=== PATIENT | male | born 1940 | race Caucasian/White ===

== ENCOUNTER → 2017-01-05 | Outpatient (CLI) | payer MEDICARE, OTHER | LOC: GMAB 10:10 | PROVIDERS: ATTEND Family Medicine | DX: E03.9 Hypothyroidism, unspecified (principal); G20 Parkinson's disease; Z12.5 Encounter for screening for malignant neoplasm of prostate | CPT/HCPCS: 84439; 84443; 84481; G0103 ==

== ENCOUNTER → 2017-01-11 | Outpatient (CLI) | payer MEDICARE, OTHER ==
--- NOTE | 2017-01-13 19:26 | CT ---
EXAM DESCRIPTION: CT abdomen and pelvis without contrast CLINICAL HISTORY: MICROSCOPIC HEMATURIA COMPARISON: None Available. TECHNIQUE: Noncontrast spiral CT with coronal and sagittal reformatted images. This exam was performed according to our departmental dose-optimization program, which includes automated exposure control, adjustment of the mA and/or kV according to patient size and/or use of iterative reconstruction technique. FINDINGS: No renal stone disease. No mass lesion identified kidneys, ureters, or bladder. Prostate calcification. Multiple phleboliths in the pelvis. Old granulomatous disease with a couple of calcified granulomas in the lung bases and numerous calcified granulomas in the spleen. Heart size normal And couple calcified granulomas in the liver. No other abnormality. Pancreas and adrenal glands are normal. No biliary or pancreatic duct dilation. Small sliding-type hiatal hernia. No diagnostic abnormality of the stomach or small intestine. Numerous diverticula of the large intestine. Redundant large intestine with moderate volume of stool. No mass lesion or diagnostic inflammatory process identified Atherosclerotic aorta. 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 This measures about 1.7 x 1.9 x 1.1 cm. Osteopenia. No acute bony abnormality. Multilevel degenerative change in the spine IMPRESSION: Etiology of hematuria not identified. No renal stone disease or neoplastic lesion identified Redundant large intestine with numerous diverticula. 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 Recommend vascular consultation. If intervention is planned consider CT angiogram for better characterization Electronically signed by: Stephon Barksdale MD 01/13/2017 7:25 PM CDT Workstation: [employer]
== END ==
LOC: CT 10:49
PROVIDERS: ATTEND Family Medicine
DX: R31.21 Asymptomatic microscopic hematuria (principal)

== ENCOUNTER → 2018-01-08 | Outpatient (CLI) | payer MEDICARE, OTHER | LOC: GMAE 11:58 | PROVIDERS: ATTEND Family Medicine | DX: E03.9 Hypothyroidism, unspecified (principal) ==

== ENCOUNTER 2018-01-17 07:32 | Emergency (ER) | payer MEDICARE, OTHER ==
[2018-01-17 08:09] VITALS: TEMP 96.6
--- NOTE | 2018-01-17 08:54 | CT ---
EXAM DESCRIPTION: Cervical Spine CLINICAL HISTORY: fall without loc COMPARISON: None Available. TECHNIQUE: Multiple axial images of the cervical spine without contrast. Multiplanar reformatted images. This exam was performed according to our departmental dose-optimization program, which includes automated exposure control, adjustment of the mA and/or kV according to patient size and/or use of iterative reconstruction technique. FINDINGS: Vertebral body stature and alignment are maintained. There is no acute fracture or destructive osseous lesion. Advanced multilevel spondylitic changes throughout the cervical spine with moderate disc narrowing from C3-C4 through C7-T1. Hypertrophic uncovertebral spurring, advanced facet hypertrophy and disc osteophyte complexes at these levels with mild multilevel spinal canal narrowing and moderate to high-grade bilateral neural foraminal narrowing, most advanced at C5-C6. Calcific plaque in the visualized arteries. The visualized lung apices are clear. IMPRESSION: 1. No CT evidence of an acute osseous abnormality in the cervical spine. 2. Advanced multilevel spondylitic and facet degenerative changes. Electronically signed by: Martin Golden MD 01/17/2018 8:53 AM CDT
--- NOTE | 2018-01-17 08:57 | CT ---
EXAM DESCRIPTION: Head CLINICAL HISTORY: fall without loc COMPARISON: None available TECHNIQUE: Multiple axial images of the head without contrast. Multiplanar reformatted images. This exam was performed according to our departmental dose-optimization program, which includes automated exposure control, adjustment of the mA and/or kV according to patient size and/or use of iterative reconstruction technique. FINDINGS: There is no CT evidence of intracranial hemorrhage, mass effect, or large territory infarction. Mild generalized volume loss. Mild patchy supratentorial white matter hypodensities. There are no abnormal extra-axial fluid collections. Calcific plaque in the visualized arteries. There is no acute calvarial defect. The visualized paranasal sinuses and the mastoids are clear. IMPRESSION: 1. No CT evidence of an acute intracranial abnormality. If there is concern for an acute or subacute infarct, consider follow-up MRI. 2. Senescent changes. Electronically signed by: Martin Golden MD 01/17/2018 8:56 AM CDT
[2018-01-17] MEDS ORDERED: NEOMYCIN-BACITRACIN-POLYMYXIN 0.9 GM UD TOP ONE (09:13)
[2018-01-17] MEDS ORDERED: SULFA/TRIMETH 800/160 (DS) TAB 1 EA TAB PO ONE (09:13)
[2018-01-17] MEDS ORDERED: TETANUS,DIPHTHERIA,PERTUSSIS 1 EA SYG IM ONE (09:14)
--- NOTE | 2018-01-17 09:17 | ED.PDOC ---
History of Present Illness - General Chief Complaint: Trauma Stated Complaint: fall Time Seen by Provider: 01/17/18 07:33 Source: patient, family Exam Limitations: no limitations - History of Present Illness Initial Comments: the patient is a 77-year-old male with a history of Parkinson's that tripped and fell on his bathroom and sustained a 1/2 inch laceration above his right eyebrow. No loss of consciousness. He does have some mild pain to the left lateral lower neck but not over the midline of the neck. There is no deformity. No bruising. No other injuries. No acute neurological changes. He is pleasant alert and cooperative. He does have some chronic dementia. Family is here with him. Timing/Duration: 1/2 hour Severity: mild Improving Factors: nothing Worsening Factors: nothing Associated Symptoms: denies symptoms Allergies/Adverse Reactions: Allergies Penicillins Allergy (Verified 04/14/15 10:53) Home Medications: Ambulatory Orders Amantadine HCl [Symmetrel] 100 mg PO BID 04/14/15 Atorvastatin Calcium [Lipitor] 10 mg PO BEDTIME 04/14/15 Carbidopa-Levodopa [Carbidopa/Levodopa 25-100 mg] 1 tab PO BID 04/14/15 Tamsulosin [Flomax] 0.4 mg PO BEDTIME 04/14/15 Tyrosine [l-Tyrosine] 500 mg PO DAILY 04/14/15 rOPINIRole HCL [Requip] 1 mg PO BID #0 tab 04/16/15 Review of Systems - Review of Systems Constitutional: States: no symptoms reported EENTM: States: no symptoms reported Respiratory: States: no symptoms reported Cardiology: States: no symptoms reported Gastrointestinal/Abdominal: States: no symptoms reported Genitourinary: States: no symptoms reported Musculoskeletal: States: neck pain Skin: States: see HPI Neurological: States: see HPI Endocrine: States: no symptoms reported All other Systems: No Change from Baseline Past Medical History (General) - Patient Medical History Hx Seizures: No Hx Stroke: No Hx Dementia: No Hx Asthma: No Hx of COPD: No Hx Cardiac Disorders: No Hx Congestive Heart Failure: No Hx Pacemaker: No Hx Hypertension: No Hx Thyroid Disease: No Hx Diabetes: No Hx Gastroesophageal Reflux: No Hx Renal Disease: No Hx Cancer: No Hx of HIV: No Hx Hepatitis C: No Hx MRSA: No Surgical History: cholecystectomy - Vaccination History Hx Tetanus, Diphtheria Vaccination: Yes Hx Influenza Vaccination: No Hx Pneumococcal Vaccination: No Immunizations Up to Date: No - Social History Hx Tobacco Use: No Hx Chewing Tobacco Use: No Hx Alcohol Use: No Hx Substance Use: No Hx Substance Use Treatment: No Hx Depression: No Feels Threatened In Home Enviroment: No Feels Threatened In a Relationship: No Hx Physical Abuse: No Hx Emotional Abuse: No Hx Suspected Abuse: No - Activities of Daily Living Hospice Agency (if applicable):: None - Female History Patient is a Female of Child Bearing Age (10 -59 yrs old): No Patient : No Family Medical History - Family History Father Family History: Unknown Physical Exam - Physical Exam General Appearance: Alert, Comfortable, No apparent distress Eye Exam: bilateral normal Ears, Nose, Throat: hearing grossly normal, normal ENT inspection, normal pharynx Neck: full range of motion, supple, other - tenderness to palpation approximately 2 inches lateral to the C5-6 area on the left.this appears to be a trapezius strain. 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 His family reports that he is acting normally for him. Skin Exam: normal color Comments: chronic changes related to Parkinson's otherwise. Vital Signs - 8 hr 01/17/18 01/17/18 01/17/18 07:45 08:03 08:45 Temperature 96.6 F L Pulse Rate [ 62 62 69 Apical] Respiratory 18 18 Rate Blood Pressure 127/85 145/84 [xleft] O2 Sat by Pulse 97 96 Oximetry Progress - Progress Progress: 01/17/18 09:19 the patient is a 77-year-old male presenting to the emergency room after a fall at home. He sustained a 1/2 inch laceration above the right eyebrow. This has been cleaned. Risk and benefits of repair have been explained and patient and family do agree with the repair. Wound is clean with Hibiclens and 2 simple sutures of 4-0 Ethilon were used for reapproximation without difficulty. Estimated blood loss less than 5 cc. Sutures need to come out in 7-10 days. Antibiotic ointment can be used topically several times daily to prevent drying of the edges of the wound. Monitor for any evidence of infection. The patient was given 1 dose of Bactrim here and a tetanus shot here. CT scans of the head and cervical spine show no evidence of any acute pathology. He does have chronic changes in both areas. Low-dose Motrin can be used for soreness for the next few days. ER warnings were given for any significant worsening. Keep routine follow-up with primary care doctor otherwise. - EKG/XRAY/CT CT Ordered: No CT Interpretation Call Back: No Departure - Departure Clinical Impression: Fall at home Qualifiers: Encounter type: initial encounter Qualified Code(s): W19.XXXA - Unspecified fall, initial encounter; Y92.009 - Unspecified place in unspecified non- institutional (private) residence as the place of occurrence of the external cause; Y92.009 - Unspecified place in unspecified non-institutional (private) residence as the place of occurrence of the external cause Acute cervical myofascial strain Qualifiers: Encounter type: initial encounter Qualified Code(s): S16.1XXA - Strain of muscle, fascia and tendon at neck level, initial encounter Laceration of forehead Qualifiers: Encounter type: initial encounter Qualified Code(s): S01.81XA - Laceration without foreign body of other part of head, initial encounter Disposition: Discharge to Home or Self Care Condition: Fair Departure Forms: ED Discharge - Pt. Copy, Patient Portal Self Enrollment Instructions: DI for Trauma, Laceration Repair With Stitches (DC) Diet: regular diet Activity: increase activity as tolerated Referrals: TENISHA MCCABE MD [Primary Care Provider] - 1-2 Weeks Home Medications: Ambulatory Orders Amantadine HCl [Symmetrel] 100 mg PO BID 04/14/15 Atorvastatin Calcium [Lipitor] 10 mg PO BEDTIME 04/14/15 Carbidopa-Levodopa [Carbidopa/Levodopa 25-100 mg] 1 tab PO BID 04/14/15 Tamsulosin [Flomax] 0.4 mg PO BEDTIME 04/14/15 Tyrosine [l-Tyrosine] 500 mg PO DAILY 04/14/15 rOPINIRole HCL [Requip] 1 mg PO BID #0 tab 04/16/15 Additional Instructions: the patient is a 77-year-old male presenting to the emergency room after a fall at home. He sustained a 1/2 inch laceration above the right eyebrow. This has been cleaned. 2 simple sutures of 4-0 Ethilon were used for reapproximation without difficulty. Estimated blood loss less than 5 cc. Sutures need to come out in 7-10 days. Antibiotic ointment can be used topically several times daily to prevent drying of the edges of the wound. Monitor for any evidence of infection. The patient was given 1 dose of Bactrim here and a tetanus shot here. CT scans of the head and cervical spine show no evidence of any acute pathology. He does have chronic changes in both areas. Low-dose Motrin can be used for soreness for the next few days. ER warnings were given for any significant worsening. Keep routine follow-up with primary care doctor otherwise.
[2018-01-17 09:53] VITALS: BP 157/96; O2SAT 98
== END 2018-01-17 09:58 | disposition home or self-care (01) ==
LOC: ER 07:32
DX: S01.111A Laceration without foreign body of right eyelid and periocular area, initial encounter (principal); M54.2 Cervicalgia; Z23 Encounter for immunization; G31.83 Neurocognitive disorder with Lewy bodies; F02.80 Dementia in other diseases classified elsewhere, unspecified severity, without behavioral disturbance, psychotic disturbance, mood disturbance, and anxiety; Z79.899 Other long term (current) drug therapy; W01.0XXA Fall on same level from slipping, tripping and stumbling without subsequent striking against object, initial encounter; Y92.9 Unspecified place or not applicable

== ENCOUNTER → 2018-07-10 | Outpatient (CLI) | payer MEDICARE, OTHER ==
--- NOTE | 2018-07-10 16:37 | CT ---
EXAM DESCRIPTION: Lumbar Spine CLINICAL HISTORY: 78 years, Male, INITIAL ENCOUNTER FOR CLOSED FX COMPARISON: None TECHNIQUE: Lumbar CT with thin-section axial imaging with reconstructed MPR images reviewed as well. This exam was performed according to our departmental dose-optimization program, which includes automated exposure control, adjustment of the mA and/or kV according to patient size and/or use of iterative reconstruction technique. FINDINGS: Noncontrast examination of the lumbar spine demonstrates severe compression deformity of the L3 vertebral body with impaction of both endplates that are essentially touching in the center of the disc with expansion of the vertebral body and retropulsed bone significantly into the spinal canal approximately 70% with severe AP diameter central spinal canal stenosis with the canal and no more than approximately 4 mm in AP diameter. Acute fracture lines are evident involving the superior and inferior endplates with expansion of the bone consistent with a burst fracture. Pedicles and lamina and posterior elements including the superior and inferior facets are intact as a single unit. Severe spinal canal stenosis is present at this level. Changes are slightly worse to the left of midline than to the right of midline. Vertebral bodies are otherwise intact without loss of height with marked anterior hypertrophic degenerative spurs and severe degenerative disc narrowing with [id number] appearance at the L4-5 level with approximately 2 mm of retrolisthesis and minimal vacuum phenomena in this disc space as well as degenerative L5-S1 disc space. Vacuum phenomena within the L2-3 disc space with extension of gas into the L3 vertebral body from the fractured superior endplate is noted. Disc height and disc contour and alignment of the spine is normal from the L2 to level cephalad. Soft tissue images demonstrate hypertrophic changes and adequate spinal canal with annular bulge at the L4-5 level and degenerative L5-S1 level. Mild annular bulge at L3-4 and severe stenosis from annular bulge and posterior element hypertrophy and retropulsed bone at the L2-3 and upper L2 level. Abdominal aorta is abnormal with borderline aneurysm of the aorta at the thoracolumbar junction at the aortic hiatus and a normal caliber aorta below this point with a focal eccentric aneurysm of the infrarenal abdominal aorta at the L4 level anterolaterally on the right with a maximal diameter of 2.9 cm. With consider this finding more significant with the focal nature of the aneurysm arising from the abdominal aorta. The right anterolateral wall of the aneurysm bulges outside the normal lumen approximately 11 mm. I am uncertain whether this represents a true aneurysm or a calcified pseudoaneurysm of the aorta. IMPRESSION: 1. Burst fracture of the L3 vertebral body superior and inferior endplates with near complete collapse of the central vertebra and significant retropulsed bone and severe AP diameter canal stenosis at the upper L3 level no more than 4 mm in diameter. Left worse than right compromise of the bony spinal canal is evident. 2. Advanced disc degenerative disease L4-5 and L5-S1 with thecal sac in the lower range of normal without additional severe stenosis. 3. No fracture of the posterior elements at the L3 vertebral body noted. 4. 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 This eccentric bulge of the aorta is estimated at 11 mm in diameter. Vascular surgery consultation recommended with consideration for CT angiography of the aorta if the patient's renal function will allow. Electronically signed by: Stephon Villalobos MD 07/10/2018 4:35 PM [facility]
== END ==
LOC: CT 14:00
PROVIDERS: ATTEND Family Medicine
DX: S32.031A Stable burst fracture of third lumbar vertebra, initial encounter for closed fracture (principal); M51.37 Other intervertebral disc degeneration, lumbosacral region; M51.36 Other intervertebral disc degeneration, lumbar region; I71.9 Aortic aneurysm of unspecified site, without rupture; M48.061 Spinal stenosis, lumbar region without neurogenic claudication

== ENCOUNTER 2018-08-30 18:48 | Inpatient (IN) | payer MEDICARE, OTHER ==
--- NOTE | 2018-08-30 19:31 | ED.PDOC ---
History of Present Illness - General Chief Complaint: Fever Stated Complaint: fever Time Seen by Provider: 08/30/18 19:17 Source: family - daughter Exam Limitations: clinical condition - parkinsons - History of Present Illness Initial Comments: Tarun Lopez 78 y/o male was brought by EMS with fever T-102 taken by daughter at home.Had lumbar spine surgery 7 weeks ago at [facility].Also was discharge to rehab facility post surgery and had uncomplicated post op course.Has history of Parkinsons Disease and dementia. No dysuria,no cough, no SOB,usual back pain,no chills. 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 Associated Symptoms: denies symptoms, other - see hpi Review of Systems - Review of Systems Constitutional: States: see HPI, fever EENTM: States: no symptoms reported Respiratory: States: no symptoms reported Cardiology: States: no symptoms reported Gastrointestinal/Abdominal: States: no symptoms reported Genitourinary: States: no symptoms reported Musculoskeletal: States: see HPI, back pain - chronic Neurological: States: see HPI All other Systems: Reviewed and Negative, No Change from Baseline Past Medical History (General) - Patient Medical History Hx Seizures: No Hx Stroke: No Hx Dementia: No Hx Asthma: No Hx of COPD: No Hx Cardiac Disorders: No Hx Congestive Heart Failure: No Hx Pacemaker: No Hx Hypertension: No Hx Thyroid Disease: No Hx Diabetes: No Hx Gastroesophageal Reflux: No Hx Renal Disease: No Hx Cancer: No Hx of HIV: No Hx Hepatitis C: No Hx MRSA: No Hx Other PMH: Yes - Parkinsons Disease and Dementia Surgical History: cholecystectomy, other - lumbar spine - Vaccination History Hx Tetanus, Diphtheria Vaccination: Yes Hx Influenza Vaccination: Yes Hx Pneumococcal Vaccination: Yes - Social History Hx Tobacco Use: No Hx Chewing Tobacco Use: No Hx Alcohol Use: No Hx Substance Use: No Hx Substance Use Treatment: No Hx Depression: No Hx Physical Abuse: No Hx Emotional Abuse: No Hx Suspected Abuse: No - Activities of Daily Living Grooming Ability: Standby Assistance Eating (Feeding) Ability: Standby Assistance Toileting Ability: Standby Assistance - Female History Patient : No Family Medical History - Family History Father Family History: Unknown Physical Exam - Physical Exam General Appearance: Alert, Comfortable, No apparent distress Eye Exam: bilateral normal ENT Exam: normal ENT inspection, hearing grossly normal, pharynx normal Neck: non-tender, full range of motion, supple, normal inspection, trachea midline Respiratory: chest non-tender, lungs clear, normal breath sounds Cardiovascular/Chest: normal peripheral pulses, regular rate, rhythm, no murmur Gastrointestinal/Abdominal: non tender, soft, no organomegaly Extremity: no pedal edema, no calf tenderness Neurologic: alert Skin Exam: normal color, warm/dry, other - surgical site no erythema noted Progress - Progress Progress: 08/30/18 22:04 08/30/18 21:18 Urine Culture Stat 08/30/18 21:56 Urine Culture Urgent Laboratory Results - last 24 hr 08/30/18 08/30/18 08/30/18 19:54 19:54 19:54 WBC 8.4 RBC 4.08 L Hgb 11.9 L Hct 36.8 L MCV 90.1 MCH 29.1 MCHC 32.3 L RDW 16.2 H Plt Count 144 MPV 8.3 Absolute Neuts (auto) 7.70 H Absolute Lymphs (auto) 0.30 L Absolute Monos (auto) 0.40 Absolute Eos (auto) 0.00 Absolute Basos (auto) 0.00 Neutrophils % 91.1 H Lymphocytes % 3.5 L Monocytes % 4.5 Eosinophils % 0.4 L Basophils % 0.5 ESR 40 H Sodium 140 Potassium 3.7 Chloride 105 Carbon Dioxide 26 Anion Gap 12.7 BUN 24 H Creatinine 0.96 BUN/Creatinine Ratio 25.0 H Random Glucose 101 Serum Osmolality 283.6 Lactic Acid Calcium 8.9 Total Bilirubin 0.7 AST 17 ALT < 8 L Alkaline Phosphatase 127 H C-Reactive Protein 3.3 H Serum Total Protein 6.5 Albumin 3.3 Globulin 3.2 Albumin/Globulin Ratio 1.0 L Urine Color Urine Appearance Urine pH Ur Specific Delano Urine Protein Urine Glucose (UA) Urine Ketones Urine Blood Urine Nitrite Urine Bilirubin Urine Urobilinogen Ur Leukocyte Esterase Urine RBC Urine WBC Ur Epithelial Cells Urine Bacteria 08/30/18 08/30/18 19:54 21:18 WBC RBC Hgb Hct MCV MCH MCHC RDW Plt Count MPV Absolute Neuts (auto) Absolute Lymphs (auto) Absolute Monos (auto) Absolute Eos (auto) Absolute Basos (auto) Neutrophils % Lymphocytes % Monocytes % Eosinophils % Basophils % ESR Sodium Potassium Chloride Carbon Dioxide Anion Gap BUN Creatinine BUN/Creatinine Ratio Random Glucose Serum Osmolality Lactic Acid 1.8 Calcium Total Bilirubin AST ALT Alkaline Phosphatase C-Reactive Protein Serum Total Protein Albumin Globulin Albumin/Globulin Ratio Urine Color Yellow Urine Appearance Sl cloudy Urine pH 5.5 Ur Specific Delano >= 1.030 Urine Protein 100 H Urine Glucose (UA) Negative Urine Ketones Trace Urine Blood Large H Urine Nitrite Positive H Urine Bilirubin Negative Urine Urobilinogen 0.2 Ur Leukocyte Esterase Small H Urine RBC 10-20 H Urine WBC 30-40 H Ur Epithelial Cells 1-3 Urine Bacteria 4+ H - Results/Orders Results/Orders: 08/30/18 21:18 Urine Culture Stat 08/30/18 21:56 Urine Culture Urgent Laboratory Results - last 24 hr 08/30/18 08/30/18 08/30/18 19:54 19:54 19:54 WBC 8.4 RBC 4.08 L Hgb 11.9 L Hct 36.8 L MCV 90.1 MCH 29.1 MCHC 32.3 L RDW 16.2 H Plt Count 144 MPV 8.3 Absolute Neuts (auto) 7.70 H Absolute Lymphs (auto) 0.30 L Absolute Monos (auto) 0.40 Absolute Eos (auto) 0.00 Absolute Basos (auto) 0.00 Neutrophils % 91.1 H Lymphocytes % 3.5 L Monocytes % 4.5 Eosinophils % 0.4 L Basophils % 0.5 ESR 40 H Sodium 140 Potassium 3.7 Chloride 105 Carbon Dioxide 26 Anion Gap 12.7 BUN 24 H Creatinine 0.96 BUN/Creatinine Ratio 25.0 H Random Glucose 101 Serum Osmolality 283.6 Lactic Acid Calcium 8.9 Total Bilirubin 0.7 AST 17 ALT < 8 L Alkaline Phosphatase 127 H C-Reactive Protein 3.3 H Serum Total Protein 6.5 Albumin 3.3 Globulin 3.2 Albumin/Globulin Ratio 1.0 L Urine Color Urine Appearance Urine pH Ur Specific Delano Urine Protein Urine Glucose (UA) Urine Ketones Urine Blood Urine Nitrite Urine Bilirubin Urine Urobilinogen Ur Leukocyte Esterase Urine RBC Urine WBC Ur Epithelial Cells Urine Bacteria 08/30/18 08/30/18 19:54 21:18 WBC RBC Hgb Hct MCV MCH MCHC RDW Plt Count MPV Absolute Neuts (auto) Absolute Lymphs (auto) Absolute Monos (auto) Absolute Eos (auto) Absolute Basos (auto) Neutrophils % Lymphocytes % Monocytes % Eosinophils % Basophils % ESR Sodium Potassium Chloride Carbon Dioxide Anion Gap BUN Creatinine BUN/Creatinine Ratio Random Glucose Serum Osmolality Lactic Acid 1.8 Calcium Total Bilirubin AST ALT Alkaline Phosphatase C-Reactive Protein Serum Total Protein Albumin Globulin Albumin/Globulin Ratio Urine Color Yellow Urine Appearance Sl cloudy Urine pH 5.5 Ur Specific Delano >= 1.030 Urine Protein 100 H Urine Glucose (UA) Negative Urine Ketones Trace Urine Blood Large H Urine Nitrite Positive H Urine Bilirubin Negative Urine Urobilinogen 0.2 Ur Leukocyte Esterase Small H Urine RBC 10-20 H Urine WBC 30-40 H Ur Epithelial Cells 1-3 Urine Bacteria 4+ H - EKG/XRAY/CT XRAY: chest - right lwer lobe opacity-[id number] Departure - Departure Clinical Impression: Fever Qualifiers: Fever type: due to other condition Qualified Code(s): R50.81 - Fever presenting with conditions classified elsewhere Urinary tract infection Qualifiers: Urinary tract infection type: site unspecified Hematuria presence: with hematuria Qualified Code(s): N39.0 - Urinary tract infection, site not specified Time of Disposition: 22:09 Disposition: Admit Patient Condition: Fair Departure Forms: ED Discharge - Pt. Copy, Patient Portal Self Enrollment Referrals: TENISHA MCCABE MD [Primary Care Provider] - 1-2 Weeks Home Medications: Ambulatory Orders Carbidopa-Levodopa [Carbidopa/Levodopa 25-100 mg] 1 tab PO TID 04/14/15 Tamsulosin [Flomax] 0.4 mg PO BEDTIME 04/14/15 rOPINIRole HCL [Requip] 1 mg PO BID #0 tab 04/16/15 Fludrocortisone Acetate 0.1 mg PO BID 08/30/18 Levothyroxine Sodium 50 mcg PO DAILY 08/30/18 Meloxicam 7.5 mg PO BID 08/30/18 Midodrine HCl 10 mg PO QID 08/30/18 QUEtiapine FUMARATE [SEROquel] 1 - 2 mg PO BEDTIME 08/30/18 Tramadol HCl 50 mg PO Q6H PRN 08/30/18 Decision To Admit - Decistion To Admit Decision to Admit Reason: Admit from ER Decision to Admit Date: 08/30/18 - D/W Bennett Del Rosario-ANP/Hospitalist Decision to Admit Time: 22:06
[2018-08-30] MEDS ORDERED: SODIUM CHLORIDE 0.9% 500ML 500 ML IVS ONE (19:34)
--- NOTE | 2018-08-30 20:33 | RAD ---
EXAM DESCRIPTION: Chest,1 View CLINICAL HISTORY: 78 years Male, fever COMPARISON: Chest x-ray April 15, 2015. FINDINGS: There is mild streaky opacity in the right lower lung zone. No pneumothorax. No significant pleural effusion. Cardiac silhouette appears borderline enlarged. Aortic atherosclerosis and tortuosity is present. Osseous structures demonstrate degenerative changes. IMPRESSION: Mild streaky opacity in the right lung base favoring atelectasis over infiltrate. Electronically signed by: Juan Cervantes MD 08/30/2018 8:29 PM CDT
--- NOTE | 2018-08-30 20:47 | CT ---
PROCEDURE: Lumbar Spine CLINICAL HISTORY: 78 years ,Male ,fever;s/p lumbar spine surgery 7 wks ago COMPARISON: 07/10/2018 TECHNIQUE: Contiguous axial images obtained through the lumbar spine without IV contrast. Coronal and sagittal reformatted images obtained. This exam was performed according to our department optimization program which includes automated exposure control, adjustment of the mA and/or kv according to patient size and/or use of iterative reconstruction technique. FINDINGS: Straightening of the normal lordosis. There is sideplate and screw fixation of the lumbar spine which extends from L2 to L4. There has been partial corpectomy at L3 with intervertebral graft. Multilevel degenerative change. There is mild superior compression at T12 which is unchanged. Narrowing of the disc interspaces at L4-5 and L5-S1 which appears similar to the previous study. Vascular calcification in aorta and its branches. Cardiac enlargement. Generalized disc bulging and facet arthropathy at L2-L3 with mild central canal and bilateral neural foraminal stenosis. Metallic susceptibility artifact at L3-L4 limits evaluation. There appears to be moderate narrowing of the central canal and mild neural foraminal stenosis. L4-5: Moderate disc bulging with moderate neural foraminal and central canal stenosis. L5-S1: Disc bulging with mild central canal stenosis and moderate neural foraminal stenosis. The plate and screw fixation on the left is approximately 2 cm away from the lateral cortices of the vertebral bodies. The possibility of a fluid collection in this location cannot be excluded secondary to streak artifact. IMPRESSION: Plate and screw fixation with corpectomy at L3. The sideplate does not abut the lateral cortices of the vertebral bodies. The possibility of an underlying fluid collection cannot be excluded secondary to metallic streak artifact Multilevel degenerative change Cardiac enlargement. Electronically signed by: Michell Kuhn MD 08/30/2018 8:44 PM CDT
[2018-08-30] MEDS ORDERED: MEROPENEM 500 MG in SODIUM CHL 0.9% 50ML MIN-BAG+ 50 ML IVPB ONE (22:09)
[2018-08-30] MEDS ORDERED: SODIUM CHL 0.9% 50ML MIN-BAG+ 50 ML IVPB ONE (22:18)
[2018-08-30] MEDS ORDERED: MEROPENEM 500 MG VIAL IVPB ONE (22:18)
--- NOTE | 2018-08-30 22:34 | HP ---
CHIEF COMPLAINT: Fever, delirium. HISTORY OF PRESENT ILLNESS: The patient is a 78-year-old man with a significant history of a recent lumbar spinal fixation about 7 weeks ago in [place], who was brought here with family after they found him to have a temperature of 102 degrees Fahrenheit, in addition to a slight increase in delirium from his baseline Alzheimer's. The daughter stated he gradually was acting slightly abnormal, being a little more agitated and delirious, as well as speaking a little more softly than usual, over several days. They did measure his temperature and it was found to be a 102 degrees Fahrenheit. She knew with his comorbidities, an Emergency Room evaluation would be appropriate. In the Emergency Room, workup found him to have a urinary tract infection with some right lower lobe atelectasis. He was admitted overnight and started on meropenem and ready for evaluation in the morning. REVIEW OF SYSTEMS: Slightly limited given the patient's advanced dementia and Parkinson's. He does endorse no abdominal pain or dysuria. He does have some lower back pain status post recent surgery and skin irritation from his back brace. PAST MEDICAL HISTORY: 1. Hyperlipidemia. 2. Hypothyroidism. 3. Advanced Alzheimer's disease. 4. Advanced Parkinson's disease. PAST SURGICAL HISTORY: 1. Lumbar spinal fixation involving cage insertion, arthrodesis L2 to L4, L3 corpectomy. 2. Colonoscopy. MEDICATIONS: 1. Fludrocortisone 0.1 mg tablet b.i.d. 2. Rapaflo 4 mg capsule p.o. daily. 3. Sinemet 25/100 mg tablet p.o. t.i.d. 4. Synthroid 50 mcg tablet p.o. daily. 5. Amantadine 100 mg tablet p.o. b.i.d. 6. Midodrine 10 mg tablet p.o. t.i.d. 7. Tramadol 50 mg tablet p.o. q.4h. p.r.n. moderate pain. 8. Mobic 7.5 mg tablet 1 to 2 tabs p.o. daily. 9. Ropinirole 0.5 mg tablet daily. ALLERGIES: PENICILLINS. FAMILY HISTORY: Father at age 74, unknown source. Mother at 91 years old. He has three healthy sisters currently living. SOCIAL HISTORY: He denies ever using tobacco, rarely consumes wine, no illicit drugs. He is . has advanced dementia. Three children. PHYSICAL EXAMINATION: VITAL SIGNS: Temperature 97.9 degrees Fahrenheit. Pulse 81. Blood pressure 159/81. Respirations 18. O2 saturation 97% on room air. GENERAL: No acute distress, sitting up in bed finishing breakfast. Attempting to talk normally. CHEST: Lungs clear to auscultation, no chest wall tenderness, no wheezes or rales. CARDIOVASCULAR: Normal rate and rhythm, no murmurs, no peripheral edema. ABDOMEN: Soft, nontender to palpation, no masses appreciated. NEUROLOGIC: Alert, oriented to person which is baseline, moving extremities normally at his baseline. Per the daughter, he is normal this morning to about his baseline, which is able to shuffle to the restroom and to the bed, very short distances on his own. LABORATORY: WBCs 4.9, hemoglobin 10.4, hematocrit 32, platelet count 124. Sodium 140, potassium 3.7, chloride 107, carbon dioxide 26, BUN 19, creatinine 0.94. AST 17, ALT 8, alkaline phosphatase 127. CRP elevated at 3.3, ESR elevated at 40. Urinalysis: Large blood, positive nitrites, small leukocyte esterase, 30 to 40 WBCs, 10 to 20 RBCs, 4+ urine bacteria. MICROBIOLOGY: Urine culture pending. Flu A and B negative. IMAGING: Chest x-ray 08/31/18 shows no acute cardiopulmonary process, no consolidation. Chest x-ray on admission from 08/30/18 shows possible right lower lobe atelectasis, no infiltrate. Lumbar spine CT 08/30/18: "Plate and screw fixation with corpectomy at L3, possibility of an underlying fluid collection cannot be excluded secondary to metallic streak artifact. Multilevel degenerative changes noted." ASSESSMENT: 1. Complicated urinary tract infection in a male with history of Gonzalez use. 2. Febrile due to #1, resolved. 3. Chronic low back pain status post lumbar fixation. 4. Chronic hypotension. 5. Hyperlipidemia. 6. Hypothyroidism. 7. Advanced Alzheimer's. 8. Advanced Parkinson's disease. PLAN: Mr. Lopez is going to be admitted with a diagnosis of acute complicated urinary tract infection in a male. He is allergic to penicillin, thus, we have started him on meropenem intravenously. Urine culture is pending. After that time, we can narrow our antibiotics to more appropriate outpatient treatment. We are continuing his home medications, I have discussed with the daughter who endorses his midodrine is actually t.i.d., he receives his last dose around 3 to 4 PM to avoid any sleep complications. We are giving him an incentive spirometer given her admission x-ray that showed atelectasis. He does have some skin irritation on his back from his back brace status post lumbar fixation, nursing is applying wound care and protective measures to avoid any ulceration. We will avoid DVT Prophylaxis with Lovenox given his recent Spinal surgery. Started on SCDs for the time being. We will have physical therapy work with him to establish a baseline and provide him with a walker and resources while he is in the hospital. I discussed this picture and the plan with the daughter, who endorses agreement and understanding. [facility][id number] [facility]
[2018-08-30] MEDS ORDERED: SODIUM CHLORIDE 0.9% (FLUSH) 10 ML SYG IV PRN (23:42)
[2018-08-30] MEDS ORDERED: IV SET AND CAP CHANGE INJ INJ SCH (23:45)
[2018-08-30] MEDS ORDERED: ACETAMINOPHEN 325 MG TAB PO PRN (23:46)
[2018-08-31] MEDS ORDERED: QUEtiapine FUMARATE 100 MG TAB PO SCH
[2018-08-31] MEDS: FLUDROCORTISONE ACETATE PO SCH ×4 (00:06→20:33)
[2018-08-31] MEDS ORDERED: QUEtiapine FUMARATE 100 MG TAB ONE (00:07)
[2018-08-31] MEDS: MIDODRINE HCL 10 MG PO SCH ×6 (00:07→20:34)
[2018-08-31] MEDS: QUEtiapine FUMARATE 100 MG TAB PO SCH ×2 (00:14→20:36)
[2018-08-31] MEDS ORDERED: SODIUM CHL 0.9% 50ML MIN-BAG+ 50 ML IVPB ONE ×3 (05:10→19:43)
[2018-08-31] MEDS ORDERED: MEROPENEM 500 MG VIAL IVPB ONE ×3 (05:10→19:43)
[2018-08-31] MEDS: MEROPENEM 500 MG in SODIUM CHL 0.9% 50ML MIN-BAG+ 50 ML IVPB SCH ×3 (05:36→21:56)
[2018-08-31] MEDS ORDERED: LEVOTHYROXINE SODIUM 0.025 MG TAB ONE (07:24)
--- NOTE | 2018-08-31 07:25 | RAD ---
EXAM: Single view chest. INDICATION: Pneumonia. COMPARISON: Chest x-ray: 08/30/2018. FINDINGS: Cardiac silhouette: At the upper limit of normal in size Xiomara: Unremarkable. Lobar consolidation: None. Pleural effusion: None. Pneumothorax: None. Other: Calcified left hilar lymph nodes are again noted Bones: Unremarkable. Other: None. IMPRESSION: 1. No acute cardiopulmonary process. Electronically signed by: Jan Cross MD 08/31/2018 7:23 AM CDT Workstation: [id number]
[2018-08-31] MEDS: LEVOTHYROXINE SODIUM 0.025 MG TAB PO SCH (09:50)
[2018-08-31] MEDS: MELOXICAM 7.5 MG TAB PO SCH ×2 (09:50→20:35)
[2018-08-31] MEDS: TAMSULOSIN 0.4 MG CAP PO SCH (09:50)
[2018-08-31] MEDS: CARBIDOPA/LEVODOPA 25/100 1 TAB PO SCH ×3 (09:52→20:36)
[2018-09-01] MEDS ORDERED: SODIUM CHL 0.9% 50ML MIN-BAG+ 50 ML IVPB ONE ×3 (04:00→19:55)
[2018-09-01] MEDS ORDERED: MEROPENEM 500 MG VIAL IVPB ONE ×3 (04:01→19:55)
[2018-09-01] MEDS: MEROPENEM 500 MG in SODIUM CHL 0.9% 50ML MIN-BAG+ 50 ML IVPB SCH ×3 (05:44→21:44)
[2018-09-01] MEDS: LEVOTHYROXINE SODIUM 0.025 MG TAB PO SCH (06:06)
[2018-09-01] MEDS ORDERED: POTASSIUM CHLORIDE INJ 40 MEQ 40 MEQ in SODIUM CHLORIDE 0.9% 250ML 250 ML IVPB ONE (06:49)
[2018-09-01] MEDS ORDERED: SODIUM CHLORIDE 0.9% 250ML 250 ML ONE (07:35)
[2018-09-01] MEDS ORDERED: POTASSIUM CHLORIDE 40mEq 20ML VIAL ONE (07:35)
[2018-09-01] MEDS: MELOXICAM 7.5 MG TAB PO SCH ×2 (08:10→20:44)
[2018-09-01] MEDS: CARBIDOPA/LEVODOPA 25/100 1 TAB PO SCH ×3 (08:11→20:46)
[2018-09-01] MEDS: MIDODRINE HCL 10 MG PO SCH ×5 (08:11→21:17)
[2018-09-01] MEDS: TAMSULOSIN 0.4 MG CAP PO SCH (08:11)
[2018-09-01] MEDS: SODIUM CHLORIDE 0.9% (FLUSH) 10 ML SYG IV SCH ×2 (08:19→20:45)
[2018-09-01] MEDS: FLUDROCORTISONE ACETATE PO SCH ×2 (08:20→20:43)
--- NOTE | 2018-09-01 11:14 | PN ---
DATE: 09/01/18 SUBJECTIVE: The patient slept well overnight, waking only for a couple of drinks of water. A sitter is in the room with him currently, stated he did very well. No other changes per nursing, other than an update that Physical Therapy saw him yesterday. REVIEW OF SYSTEMS: Somewhat limited due to the patient's advanced dementia, but it does endorse no abdominal pain. OBJECTIVE: VITALS: Temperature 97.5, pulse 67, blood pressure 169/90, respirations 18, O2 saturation 95% on room air. PHYSICAL EXAM: GENERAL: No acute distress, lying in bed comfortably. CHEST: Lung are clear to auscultation, no wheezes or coughing. CARDIO: Normal rate and rhythm, no murmur, no peripheral edema. ABDOMEN: Soft, non-tender, no suprapubic tenderness. NEUROLOGIC: Per sitter and daughter, at baseline for dementia, no focal deficits. LABORATORY: WBC 3.6, hemoglobin/hematocrit is 10.4/32.3, platelets 122. Sodium 140, potassium 3.3, chloride 106, carbon dioxide 27, BUN/creatinine 19/0.76. Normal serum osmolality, calcium slightly low at 8.3. MICROBIOLOGY: Urine culture pending, Influenza A and B negative. ASSESSMENT: 1. Complicated urinary tract infection in a male with history of Gonzalez use. 2. Febrile due to #1, resolved. 3. Hypokalemia, replacing. 4. Chronic low back pain status post lumbar fixation. 5. Chronic hypotension. 6. Hyperlipidemia. 7. Hypothyroidism. 8. Advanced Alzheimer's. 9. Advanced Parkinson's disease. PLAN: Will continue to treat Mr. Lopez's urinary tract infection with Meropenem IV. We are awaiting urine cultures, after which we can narrow down antibiotics. Continue his home medications consisting of Sinemet, Synthroid, Fludrocortisone, Midodrine t.i.d., Seroquel, Ropinirole and Flomax. Physical Therapy worked with the patient yesterday and I received a verbal report that he did well, but was just slightly weaker than what his apparent baseline is. We will replace his potassium throughout the day. #[id number] [facility]
[2018-09-01] MEDS ORDERED: SODIUM CHLORIDE 0.9% 1000ML 1,000 ML ONE (11:46)
[2018-09-01] MEDS: QUEtiapine FUMARATE 100 MG TAB PO SCH (20:45)
[2018-09-02] MEDS ORDERED: MEROPENEM 500 MG VIAL IVPB ONE ×2 (01:51→13:46)
[2018-09-02] MEDS ORDERED: SODIUM CHL 0.9% 50ML MIN-BAG+ 50 ML IVPB ONE ×2 (01:51→13:45)
[2018-09-02] MEDS: MEROPENEM 500 MG in SODIUM CHL 0.9% 50ML MIN-BAG+ 50 ML IVPB SCH ×2 (05:49→13:54)
[2018-09-02] MEDS: LEVOTHYROXINE SODIUM 0.025 MG TAB PO SCH (06:01)
[2018-09-02] MEDS: TAMSULOSIN 0.4 MG CAP PO SCH (09:33)
[2018-09-02] MEDS: MELOXICAM 7.5 MG TAB PO SCH (09:33)
[2018-09-02] MEDS: SODIUM CHLORIDE 0.9% (FLUSH) 10 ML SYG IV SCH (09:33)
[2018-09-02] MEDS: CARBIDOPA/LEVODOPA 25/100 1 TAB PO SCH ×2 (09:33→14:51)
[2018-09-02] MEDS: FLUDROCORTISONE ACETATE PO SCH (09:34)
[2018-09-02] MEDS: MIDODRINE HCL 10 MG PO SCH ×3 (10:57→16:16)
--- NOTE | 2018-09-02 12:27 | PN ---
DATE: 09/02/18 SUBJECTIVE: The patient feeling much better, conversing a lot more normal and quickly than in the previous days. The sitter is with him, she endorses no changes and that he ate breakfast well. REVIEW OF SYSTEMS: GENERAL: Patient feeling better overall, no acute distress. CHEST: Denies any shortness of breath, no cough. CARDIO: Denies any chest pain, no new peripheral edema, no palpitations. ABDOMEN: No abdominal pain, urinating and having normal bowel movements. NEUROLOGIC: Patient is at baseline regarding advanced dementia, able to give a little bit more details today though. OBJECTIVE: VITAL SIGNS: Temperature 97.6, pulse 71, blood pressure 174/92 down to 150/93, respirations 18, O2 saturation 96% on room air. PHYSICAL EXAM: GENERAL: Patient lying in bed, just finished breakfast, no acute distress and conversing better than he has in previous days. CHEST: Lungs are clear to auscultation, no wheezes or rales. CARDIO: Regular rate and rhythm, no murmurs, no peripheral edema. ABDOMEN: Soft, non-tender, no suprapubic tenderness. NEUROLOGIC: Alert to person and place, near baseline per the sitter, no focal findings. EXTREMITIES: Normal pulses throughout, no swelling. LABORATORY: WBC 4.0, hemoglobin 10.8, hematocrit 32.7, platelet count improving at 127. Sodium 137, potassium 3.7, chloride 102, carbon dioxide 29, BUN/creatinine 17/0.64, alkaline phosphatase normalizing to 106. MICROBIOLOGY: Urine culture pending. ASSESSMENT: 1. Complicated urinary tract infection in a male with history of Gonzalez use, improving. 2. Febrile due to #1, resolved. 3. Hypokalemia, resolved. 4. Chronic low back pain status post lumbar fixation. 5. Chronic hypotension. 6. Hyperlipidemia. 7. Hypothyroidism. 8. Advanced Alzheimer's. 9. Advanced Parkinson's disease. PLAN: We will continue treating Mr. Lopez's urinary tract infection with IV Meropenem while we await for urine culture and susceptibilities. Given his blood pressure is becoming more normal and even slightly high, we will hold Midodrine as we see necessary. Continuing all other home medications at this time. Physical Therapy yesterday saw the patient and said he was weak but doing well overall, they agreed and I have given him a prescription for a wheelchair for longer distances. #[id number] [facility]
[2018-09-02] MEDS ORDERED: SODIUM CHLORIDE 0.9% 500ML 500 ML ONE (14:30)
[2018-09-02 14:56] VITALS: TEMP 98.6
--- NOTE | 2018-09-02 16:55 | DS ---
ADMISSION DIAGNOSIS: 1. Complicated urinary tract infection in a male with history of Gonzalez use. 2. Febrile due to #1, resolved. 3. Chronic low back pain status post lumbar fixation. 4. Chronic hypotension. 5. Hyperlipidemia. 6. Hypothyroidism. 7. Advanced Alzheimer's. 8. Advanced Parkinson's disease. REASON FOR ADMISSION: The patient is a 78-year-old man with a significant history of a recent lumbar spinal fixation about 7 weeks ago in [place], who was brought here with family after they found him to have a temperature of 102 degrees Fahrenheit, in addition to a slight increase in delirium from his baseline Alzheimer's. The daughter stated he gradually was acting slightly abnormal, being a little more agitated and delirious, as well as speaking a little more softly than usual, over several days. They did measure his temperature and it was found to be a 102 degrees Fahrenheit. She knew with his comorbidities, an Emergency Room evaluation would be appropriate. In the Emergency Room, workup found him to have a urinary tract infection with some right lower lobe atelectasis. He was admitted overnight and started on meropenem and ready for evaluation in the morning. HOSPITAL COURSE: Mr. Lopez was admitted and treated for acute complicated urinary tract infection, responding well to IV antibiotics consisting of Meropenem. He did well over the last 3 days, his vitals stabilized as well as any type of sepsis picture. We received cultures and sensitivities today, resistant to Bactrim and sensitive to fluoroquinolones and cephalosporins. VITALS: Temperature 98.8, pulse 64, blood pressure 156/101, respirations 19, O2 saturation 97% on room air. LABORATORY: White blood cell count within normal limits throughout admission, hemoglobin mildly low but stable through admission. Platelet count in the mid 120s. ESR was 40. Sodium normal throughout admission, potassium low as 3.3, normalized to 3.7. BUN/creatinine was normal throughout the admission at an average of 17/0.64. Lactic acid was normal at 1.8. Urinalysis on admission showed positive nitrite, small leukocyte esterase, 4+ count of urine bacteria, and large amount of blood. MICROBIOLOGY: Urine culture showed E. coli susceptible to fluoroquinolones and cephalosporins. IMAGING: Chest x-ray throughout admission was unremarkable. The patient had lumbar spine CT prior to admission that showed a chronic plate and screw fixation with corpectomy at L3, multilevel degenerative changes noted. DISCHARGE DIAGNOSIS: 1. Complicated urinary tract infection in a male with history of Gonzalez use, Resolving. 2. Febrile due to #1, resolved. 3. Hypokalemia, resolved. 4. Chronic low back pain status post lumbar fixation. 5. Chronic hypotension. 6. Hyperlipidemia. 7. Hypothyroidism. 8. Advanced Alzheimer's. 9. Advanced Parkinson's disease. PLAN: Given Mr. Lopez's urine culture and susceptibilities, will send him home with a 4 day course of Levaquin. With his Penicillin allergy we are hesitant to send him home on cephalosporins at this time. We prefer to use Bactrim, but it is shown to be resistant to this. Levaquin seems to be our best option at this time. The patient has sitters with him at home almost constantly, also has home health that comes out and sees him and also administers physical therapy for him. Discussed with the daughter and they agreed with the plan. Will followup with his primary care physician within the next 1 to 2 weeks to monitor progression and complete resolution of urinary tract infection. #[id number] [facility]
[2018-09-02 19:12] VITALS: BP 172/84; O2SAT 96
== END 2018-09-02 18:55 | disposition home health service (06) | DRG 690 ==
LOC: ER 18:48 → MS 22:33 → OBSVTOIN 22:33
PROVIDERS: ADMIT Family Medicine; ATTEND Family Medicine
DX: N39.0 Urinary tract infection, site not specified (principal); G89.29 Other chronic pain; E87.6 Hypokalemia; M54.5 Low back pain; I95.9 Hypotension, unspecified; E78.5 Hyperlipidemia, unspecified; E03.9 Hypothyroidism, unspecified; G30.9 Alzheimer's disease, unspecified; G20 Parkinson's disease; F02.80 Dementia in other diseases classified elsewhere, unspecified severity, without behavioral disturbance, psychotic disturbance, mood disturbance, and anxiety; B96.20 Unspecified Escherichia coli [E. coli] as the cause of diseases classified elsewhere; Z98.1 Arthrodesis status; Z79.1 Long term (current) use of non-steroidal anti-inflammatories (NSAID); Z79.899 Other long term (current) drug therapy; Z88.0 Allergy status to penicillin

== ENCOUNTER → 2018-09-11 | Outpatient (CLI) | payer MEDICARE, OTHER | LOC: BFHH 16:56 | PROVIDERS: ATTEND Family Medicine | DX: R35.0 Frequency of micturition (principal) ==

== ENCOUNTER 2018-10-21 07:49 | Emergency (ER) | payer MEDICARE, OTHER ==
[2018-10-21 08:13] VITALS: O2SAT 95
--- NOTE | 2018-10-21 08:20 | ED.PDOC ---
History of Present Illness - General Chief Complaint: Neuro Symptoms/Deficits Stated Complaint: confusion Time Seen by Provider: 10/21/18 08:16 Source: patient, family Exam Limitations: clinical condition - History of Present Illness Initial Comments: patient comes in today for 2 week history of worsening confusion. 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 However, it had until the last 2 weeks been limited to an primarily nighttime. Family states he's just increasingly gotten more and more confused and currently he cannot answer questions appropriately. Family states that yesterday they went and saw him and realized how kia started pushing by mouth fluids. He does live at home with his but they have 24 hour care with caregivers as she also several from Alzheimer's dementia. Patient normally is able to walk and he was seems to be weaker and unable to hold himself. Patient has had more and more problems with his back. In July he he underwent a back surgery to fuse his lumbar spine. Since then the hardware has been moving out of place. his daughter is unsure if he has had a bowel movement in the last couple of days but he states he thinks he had several yesterday. He's had no fever or chills. He's had no cough or cold symptoms. He is had no dysuria but daughter states he went about 24 hours without having urine output prior to than pushing fluids by mouth. When asked how he is doing patient rambles with random words including the president and someone was here but does not make sense and cannot answer most questions appropriately. Timing/Duration: getting worse Severity: severe Improving Factors: nothing Worsening Factors: nothing Associated Symptoms: denies symptoms Allergies/Adverse Reactions: Allergies Penicillins Allergy (Verified 08/31/18 03:29) Home Medications: Ambulatory Orders Tamsulosin [Flomax] 0.4 mg PO DAILY 04/14/15 rOPINIRole HCL [Requip] 1 mg PO BID #0 tab 04/16/15 Fludrocortisone Acetate 0.1 mg PO BID 08/30/18 Levothyroxine Sodium 50 mcg PO DAILY 08/30/18 Meloxicam 7.5 mg PO BID 08/30/18 Midodrine HCl 10 mg PO QID 08/30/18 QUEtiapine FUMARATE [Seroquel] 1 - 2 mg PO BID 08/30/18 Tramadol HCl 50 mg PO Q6H PRN 08/30/18 Carbidopa/Levodopa 25/100 [Sinemet 25/100] 1 ea PO QID 10/21/18 Melatonin 10 mg PO BEDTIME 10/21/18 Nabumetone 500 mg PO DAILY 10/21/18 Pimavanserin Tartrate [Nuplazid] 34 mg PO DAILY 10/21/18 Potassium Chloride [Potassium Chloride ER] 20 meq PO DAILY #30 tab 10/21/18 Review of Systems - Review of Systems Review of Systems: 10/21/18 08:20 unable to evaluate secondary to altered mental status Past Medical History (General) - Patient Medical History Hx Seizures: No Hx Stroke: No Hx Dementia: No Hx Asthma: No Hx of COPD: No Hx Cardiac Disorders: No Hx Congestive Heart Failure: No Hx Pacemaker: No Hx Hypertension: No Hx Thyroid Disease: Yes Hx Diabetes: No Hx Gastroesophageal Reflux: No Hx Renal Disease: No Hx Cancer: No Hx of HIV: No Hx Hepatitis C: No Hx MRSA: No Surgical History: cholecystectomy - Vaccination History Hx Tetanus, Diphtheria Vaccination: Yes Hx Influenza Vaccination: Yes Hx Pneumococcal Vaccination: Yes - Social History Hx Tobacco Use: No Hx Chewing Tobacco Use: No Hx Alcohol Use: No Hx Substance Use: No Hx Substance Use Treatment: No Hx Depression: No Hx Physical Abuse: No Hx Emotional Abuse: No Hx Suspected Abuse: No - Female History Patient : No Family Medical History - Family History Father Family History: Unknown Physical Exam - Physical Exam General Appearance: Alert, Comfortable, No apparent distress Eye Exam: bilateral normal Ears, Nose, Throat: hearing grossly normal, normal ENT inspection, normal pharynx Neck: non-tender, full range of motion, supple Respiratory: chest non-tender, lungs clear, normal breath sounds, no respiratory distress Cardiovascular/Chest: normal peripheral pulses, regular rate, rhythm, no edema, no murmur Peripheral Pulses: radial,right: 2+, radial,left: 2+ Gastrointestinal/Abdominal: normal bowel sounds, non tender, soft Back Exam: other - displaced harware in the lumbar spine Extremity: normal inspection Neurologic: alert, other - facies consistent with Parkinsons, diffuse weakness but able to MOODY equally DTR: 1+: Biceps, left, Biceps, right Skin Exam: normal color Progress - Progress Progress: 10/21/18 09:33 no reason found for increased confusion. Some hypokalemia and prolonged QTC which was discussed with daughter. She was aware that the Nuplazid could cause this. Discussed that the Seroquel can too and as it was not working and that is why the Nuplazid was started would stop the Seroquel until it can be discussed on Monday with his PCP. Patient also will be started on po KCL. Of note patient did have BM that was normal while here in ER and does have 24 hours care at home. - Results/Orders Results/Orders: Report Reporting MD:Sania Atkins Clipper Operator date: Dictation date: EXAM: XR Abdomen, 1 View CLINICAL HISTORY: 78 years old and is Male; altered LOC TECHNIQUE: Frontal supine view of the abdomen/pelvis. COMPARISON: No relevant prior studies available. FINDINGS: Limitations: None. Gastrointestinal tract: Large amount of colonic stool. Bones/joints: Left L2 L4 fixation plate and screws present. There is metallic hardware across a probable postoperative defect of L3. There is diffuse degenerative change of the spine which is demineralized. IMPRESSION: No acute findings. Electronically signed by: Sania Atkins MD 10/21/2018 9:05 AM CDT Report Reporting MD:Sania Atkins Clipper Operator date: Dictation date: EXAM: CT Head Without Intravenous Contrast CLINICAL HISTORY: 78 years old and is Male; altered LOC TECHNIQUE: Axial computed tomography images of the head/brain without intravenous contrast. Sagittal and coronal reformatted images were created and reviewed. This CT exam was performed using one or more of the following dose reduction techniques: automated exposure control, adjustment of the mA and/or kV according to patient size, and/or use of iterative reconstruction technique. COMPARISON: No relevant prior studies available. FINDINGS: Limitations: None. Brain: There is age related cortical atrophy and periventricular white matter hypodensity most consistent with chronic small ischemic change. No acute infarct, hemorrhage or mass. Ventricles: Unremarkable. No ventriculomegaly. Bones/joints: Unremarkable. No acute fracture. Soft tissues: Unremarkable. Sinuses: Unremarkable as visualized. No acute sinusitis. Mastoid air cells: Unremarkable as visualized. No mastoid effusion. Head Accession Number : [id number] Modality : CT Requested Proc. ID : 1 Patient : JEFF BAY Patient : Referring Physician : LEO BROOKS Date of Study : 08:16 Order Status : Report Available - ZZ Report exported on 09:07 -- Page 1 of 2 IMPRESSION: No acute findings. 10/21/18 08:30 EKG STAT Laboratory Results WBC 5.9 K/mm3 (4.8-10.8) 10/21/18 08:25 RBC 4.52 M/mm3 (4.70-6.10) L 10/21/18 08:25 Hgb 13.1 gm/dL (14.0-18.0) L 10/21/18 08:25 Hct 39.7 % (42.0-52.0) L 10/21/18 08:25 MCV 87.9 fl (80.0-94.0) 10/21/18 08:25 MCH 29.0 pg (27.0-31.0) 10/21/18 08:25 MCHC 33.0 g/dL (33.0-37.0) 10/21/18 08:25 RDW 16.0 % (11.5-14.5) H 10/21/18 08:25 Plt Count 138 K/mm3 (130-400) 10/21/18 08:25 MPV 8.0 fl (7.40-10.4) 10/21/18 08:25 Absolute Neuts (auto) 4.40 K/uL (1.8-6.8) 10/21/18 08:25 Absolute Lymphs (auto) 0.80 K/uL (1.0-3.4) L 10/21/18 08:25 Absolute Monos (auto) 0.50 K/uL (0.2-0.8) 10/21/18 08:25 Absolute Eos (auto) 0.20 K/uL (0.0-0.4) 10/21/18 08:25 Absolute Basos (auto) 0.10 K/uL (0.0-0.1) 10/21/18 08:25 Neutrophils % 75.1 % (42.0-78.0) 10/21/18 08:25 Lymphocytes % 13.0 % (20.0-50.0) L 10/21/18 08:25 Monocytes % 8.0 % (2.0-9.0) 10/21/18 08:25 Eosinophils % 2.9 % (1.0-5.0) 10/21/18 08:25 Basophils % 1.0 % (0.0-2.0) 10/21/18 08:25 Sodium 141 mmol/L (135-145) 10/21/18 08:25 Potassium 3.0 mmol/L (3.6-5.0) L 10/21/18 08:25 Chloride 102 mmol/L (101-111) 10/21/18 08:25 Carbon Dioxide 30 mmol/L (21-31) 10/21/18 08:25 Anion Gap 12.0 (12-18) 10/21/18 08:25 BUN 15 mg/dL (7-18) 10/21/18 08:25 Creatinine 0.93 mg/dL (0.6-1.3) 10/21/18 08:25 BUN/Creatinine Ratio 16.1 (10-20) 10/21/18 08:25 Random Glucose 102 mg/dL (70-105) 10/21/18 08:25 Serum Osmolality 282.3 mOsm/L (275-295) 10/21/18 08:25 Calcium 8.9 mg/dL (8.4-10.2) 10/21/18 08:25 Total Bilirubin 0.8 mg/dL (0.2-1.0) 10/21/18 08:25 AST 13 IU/L (10-42) 10/21/18 08:25 ALT < 8 IU/L (10-60) L 10/21/18 08:25 Alkaline Phosphatase 82 IU/L (42-121) 10/21/18 08:25 Creatine Kinase 21 IU/L (38-174) L 10/21/18 08:25 CK-MB (CK-2) 1.0 ng/mL (0.0-4.4) 10/21/18 08:25 CK-MB (CK-2) % Not Reportable 10/21/18 08:25 Troponin I < 0.02 ng/mL (0.01-0.05) 10/21/18 08:25 Serum Total Protein 6.7 gm/dL (6.4-8.2) 10/21/18 08:25 Albumin 3.7 g/dl (3.2-5.5) 10/21/18 08:25 Globulin 3.0 gm/dL (2.3-3.5) 10/21/18 08:25 Albumin/Globulin Ratio 1.2 (1.1-1.9) 10/21/18 08:25 Urine Color Yellow (Yellow) 10/21/18 09:00 Urine Appearance Clear (Clear) 10/21/18 09:00 Urine pH 7.0 (4.5-7.8) 10/21/18 09:00 Ur Specific [place] 1.015 (1.005-1.030) 10/21/18 09:00 Urine Protein Negative mg/dL 10/21/18 09:00 Urine Glucose (UA) Negative mg/dL (Negative) 10/21/18 09:00 Urine Ketones Negative mg/dL (NEGATIVE) 10/21/18 09:00 Urine Blood Negative (Negative) 10/21/18 09:00 Urine Nitrite Negative 10/21/18 09:00 Urine Bilirubin Negative (NEGATIVE) 10/21/18 09:00 Urine Urobilinogen 0.2 mg/dL (0.2-1.0) 10/21/18 09:00 Ur Leukocyte Esterase Negative (Negative) 10/21/18 09:00 Urine RBC 0 /hpf 10/21/18 09:00 Urine WBC 0 /hpf 10/21/18 09:00 Ur Epithelial Cells 0 /hpf 10/21/18 09:00 Urine Bacteria 0 10/21/18 09:00 - EKG/XRAY/CT EKG: Sinus, RBBB - incomplete, no ST T wave changes Comments: prolonged QTC PVCs noted Departure - Departure Clinical Impression: Dementia Qualifiers: Dementia type: Parkinson's disease Dementia behavioral disturbance: with behavioral disturbance Qualified Code(s): G20 - Parkinson's disease Disposition: Discharge to Home or Self Care Condition: Fair Departure Forms: ED Discharge - Pt. Copy, Patient Portal Self Enrollment Referrals: TENISHA MCCABE MD [Primary Care Provider] - 1-2 Weeks Prescriptions: Potassium Chloride [Potassium Chloride ER] 20 meq PO DAILY #30 tab Home Medications: Ambulatory Orders Tamsulosin [Flomax] 0.4 mg PO DAILY 04/14/15 rOPINIRole HCL [Requip] 1 mg PO BID #0 tab 04/16/15 Fludrocortisone Acetate 0.1 mg PO BID 08/30/18 Levothyroxine Sodium 50 mcg PO DAILY 08/30/18 Meloxicam 7.5 mg PO BID 08/30/18 Midodrine HCl 10 mg PO QID 08/30/18 QUEtiapine FUMARATE [Seroquel] 1 - 2 mg PO BID 08/30/18 Tramadol HCl 50 mg PO Q6H PRN 08/30/18 Carbidopa/Levodopa 25/100 [Sinemet 25/100] 1 ea PO QID 10/21/18 Melatonin 10 mg PO BEDTIME 10/21/18 Nabumetone 500 mg PO DAILY 10/21/18 Pimavanserin Tartrate [Nuplazid] 34 mg PO DAILY 10/21/18 Potassium Chloride [Potassium Chloride ER] 20 meq PO DAILY #30 tab 10/21/18 Additional Instructions: hold Seroquel and discuss with PCP on Monday prolonged QTC and increased confusion. Also start KCL pills
--- NOTE | 2018-10-21 09:04 | CT ---
EXAM: CT Head Without Intravenous Contrast CLINICAL HISTORY: 78 years old and is Male; altered LOC TECHNIQUE: Axial computed tomography images of the head/brain without intravenous contrast. Sagittal and coronal reformatted images were created and reviewed. This CT exam was performed using one or more of the following dose reduction techniques: automated exposure control, adjustment of the mA and/or kV according to patient size, and/or use of iterative reconstruction technique. COMPARISON: No relevant prior studies available. FINDINGS: Limitations: None. Brain: There is age related cortical atrophy and periventricular white matter hypodensity most consistent with chronic small ischemic change. No acute infarct, hemorrhage or mass. Ventricles: Unremarkable. No ventriculomegaly. Bones/joints: Unremarkable. No acute fracture. Soft tissues: Unremarkable. Sinuses: Unremarkable as visualized. No acute sinusitis. Mastoid air cells: Unremarkable as visualized. No mastoid effusion. IMPRESSION: No acute findings. Electronically signed by: Sania Atkins MD 10/21/2018 9:02 AM CDT
--- NOTE | 2018-10-21 09:07 | RAD ---
EXAM: XR Abdomen, 1 View CLINICAL HISTORY: 78 years old and is Male; altered LOC TECHNIQUE: Frontal supine view of the abdomen/pelvis. COMPARISON: No relevant prior studies available. FINDINGS: Limitations: None. Gastrointestinal tract: Large amount of colonic stool. Bones/joints: Left L2 L4 fixation plate and screws present. There is metallic hardware across a probable postoperative defect of L3. There is diffuse degenerative change of the spine which is demineralized. IMPRESSION: No acute findings. Electronically signed by: Sania Atkins MD 10/21/2018 9:05 AM CDT
--- NOTE | 2018-10-21 09:08 | RAD ---
EXAM: XR Chest, 1 View CLINICAL HISTORY: 78 years old and is Male; altered LOC TECHNIQUE: Frontal view of the chest. COMPARISON: 08/31/2018 FINDINGS: Limitations: None. Lungs: Chronic obstructive changes present. No consolidation. Evidence of previous granulomatous exposure with calcified hilar lymph nodes noted. Pleural space: Unremarkable. No pneumothorax. Heart: Unremarkable. No cardiomegaly. Mediastinum: Unremarkable. Bones/joints: Unremarkable. IMPRESSION: No acute findings. Electronically signed by: Sania Atkins MD 10/21/2018 9:06 AM CDT
[2018-10-21 09:59] VITALS: BP 172/112; TEMP 94.7
== END 2018-10-21 10:00 | disposition home or self-care (01) ==
LOC: ER 07:49
DX: G20 Parkinson's disease (principal); F02.81 Dementia in other diseases classified elsewhere, unspecified severity, with behavioral disturbance; G30.9 Alzheimer's disease, unspecified; I45.10 Unspecified right bundle-branch block; I49.3 Ventricular premature depolarization; I45.81 Long QT syndrome; E07.9 Disorder of thyroid, unspecified; Z79.899 Other long term (current) drug therapy; Z88.0 Allergy status to penicillin

== ENCOUNTER → 2018-12-03 | Outpatient (CLI) | payer MEDICARE, OTHER ==
--- NOTE | 2018-12-04 16:39 | MRI ---
EXAM DESCRIPTION: Lumbar Spine w/o Contrast CLINICAL HISTORY: STABLE BURSAL FRACTURE OF THIRD LUMBAR VERTEBRA, prior back surgery COMPARISON: CT of the lumbar spine dated August TECHNIQUE: Multi plantar multi sequence non contrast imaging. FINDINGS: There is good alignment of the lumbar spine. There is evidence of prior corpectomy at the L3 level with strut fusion from L2 through L4.. A lateral fusion device is observed from L2 through L4 to the left. No extra spinous abnormality is seen. L1-2: Unremarkable. L2-3: Interbody instrument fusion is observed at this level. A lateral fusion plate is observed. Facet joint arthritis and hypertrophy are observed. No disc level pathology is seen. No neural foraminal disease is noted. L3-4: There is evidence of a L3 corpectomy. Fusion strut and lateral fusion device are observed. No disc level pathology is seen. No neural foraminal disease is noted. L4-5: Loss of disc height is observed. Disc desiccation is noted. A minimal annular bulge is evident. No neural foraminal disease of significance is detected. L5-S1: The disc is desiccated. Loss of disc height is observed. No significant disc bulge or disc herniation is seen. No neural foraminal disease of significance is observed. IMPRESSION: 1. Exam demonstrates evidence of a corpectomy at the L3 level with a fusion strut extending from L2 through L4. A lateral fusion plate is observed from L2 through L4 to the left. 3. Loss of disc height and disc degenerative changes are observed at the L4-5 and L5-S1 levels. No significant compromise of the subarachnoid space or exiting nerve roots is detected. Electronically signed by: Ever Liriano MD 12/04/2018 4:37 PM CDT
== END ==
LOC: MRI 11:00
PROVIDERS: ATTEND Family Medicine
DX: S32.010A Wedge compression fracture of first lumbar vertebra, initial encounter for closed fracture (principal); M51.36 Other intervertebral disc degeneration, lumbar region; M51.37 Other intervertebral disc degeneration, lumbosacral region; Z98.1 Arthrodesis status

== ENCOUNTER → 2018-12-05 | Outpatient (CLI) | payer MEDICARE, OTHER | LOC: BFHH 19:59 | PROVIDERS: ATTEND Family Medicine | DX: N39.0 Urinary tract infection, site not specified (principal); G20 Parkinson's disease; I10 Essential (primary) hypertension ==

== ENCOUNTER → 2018-12-25 | Outpatient (CLI) | payer MEDICARE, OTHER | LOC: GMAE 13:50 | PROVIDERS: ATTEND Family Medicine | DX: R35.0 Frequency of micturition (principal) ==

== ENCOUNTER → 2019-01-28 | Outpatient (CLI) | payer MEDICARE, OTHER | LOC: BFHH 13:50 | PROVIDERS: ATTEND Family Medicine | DX: N39.0 Urinary tract infection, site not specified (principal) ==

== ENCOUNTER 2019-01-29 15:33 | Emergency (ER) | payer MEDICARE, OTHER ==
[2019-01-29] MEDS ORDERED: SODIUM CHLORIDE 0.9% 1000ML 1,000 ML IVS ONE (16:39)
--- NOTE | 2019-01-29 17:21 | CT ---
PROVIDED CLINICAL HISTORY/REASON FOR EXAM: unwitnessed fall TECHNIQUE: Volumetric CT data of the brain was obtained without intravenous contrast. This exam was performed according to our departmental dose-optimization program, which includes automated exposure control, adjustment of the mA and/or kV according to patient size and/or use of iterative reconstruction technique. COMPARISON: 10/21/2018 FINDINGS: Stable age related volume loss and chronic small vessel ischemic disease. Partial opacification of the right mastoid air cells.. Septum pellucidum and third ventricle are midline. No acute infarction is evident by CT. No acute hemorrhage is present. No mass or mass effect is present. The calvaria and soft tissues are unremarkable. The visualized paranasal sinuses are unremarkable. IMPRESSION: No acute intracranial abnormalities. Electronically signed by: Boom Lunsford MD 01/29/2019 5:20 PM CDT
--- NOTE | 2019-01-29 17:26 | RAD ---
PROVIDED CLINICAL HISTORY/REASON FOR EXAM: back pain after fall Findings: Number of images: Three Location: Lumbar spine Partial L3 corpectomy with intervertebral graft. Sideplate and screw fixation of the lumbar spine extending from L2 through L4. No hardware complication identified. There is minimal purchase of the L4 screws which have been retracted by approximately 5 mm. There is increased perihardware lucency along the distal margin of the L4 screws. No screw fracture identified. Multilevel lumbar spondylosis. Findings are most pronounced at L5/S1 with severe disc space narrowing, endplate degenerative change and osteophytosis. Lower lumbar facet hypertrophy. Diffuse atherosclerotic disease. IMPRESSION: Postoperative lumbar spine with no evidence of acute fracture. Perihardware lucency and retraction of the L4 vertebral body sideplate screws. Findings may reflect loosening. Electronically signed by: Boom Lunsford MD 01/29/2019 5:24 PM CDT
[2019-01-29] MEDS ORDERED: CARBIDOPA/LEVODOPA 25/100 1 TAB PO SCH (18:00)
--- NOTE | 2019-01-29 18:41 | ED.PDOC ---
History of Present Illness - General Chief Complaint: Trauma Stated Complaint: s/p fall,increased pain in back Time Seen by Provider: 01/29/19 16:13 Source: patient, family Exam Limitations: no limitations - History of Present Illness Initial Comments: Patient presents after having an unwitnessed fall out of bed. He has Lewy Body dementia as well as Parkinson's. He says that he did not hit his head nor lose consciousness. His daughter, who is at bedside, says that he seems to be at his baseline mentally. The patient was not standing when he fell but rather simply rolled over onto the floor. No other complaints. Timing/Duration: 1 hour Severity: mild Improving Factors: nothing Worsening Factors: nothing Associated Symptoms: denies symptoms Allergies/Adverse Reactions: Allergies Penicillins Allergy (Verified 08/31/18 03:29) Home Medications: Ambulatory Orders Tamsulosin [Flomax] 0.4 mg PO DAILY 04/14/15 rOPINIRole HCL [Requip] 1 mg PO BID #0 tab 04/16/15 Levothyroxine Sodium 50 mcg PO DAILY 08/30/18 Midodrine HCl 10 mg PO QID 08/30/18 Tramadol HCl 50 mg PO Q6H PRN 08/30/18 Carbidopa/Levodopa 25/100 [Sinemet 25/100] 1 ea PO QID 10/21/18 Nabumetone 1,000 mg PO BEDTIME 10/21/18 Pimavanserin Tartrate [Nuplazid] 34 mg PO DAILY 10/21/18 Calcium Citrate [Calcitrate] 1,900 mg PO BID 01/29/19 Vitamin D DAILY 01/29/19 Review of Systems - Review of Systems Constitutional: States: no symptoms reported EENTM: States: no symptoms reported Respiratory: States: no symptoms reported Cardiology: States: no symptoms reported Gastrointestinal/Abdominal: States: no symptoms reported Genitourinary: States: no symptoms reported Musculoskeletal: States: see HPI Skin: States: no symptoms reported Neurological: States: no symptoms reported Endocrine: States: no symptoms reported Hematologic/Lymphatic: States: no symptoms reported Past Medical History (General) - Patient Medical History Hx Seizures: No Hx Stroke: No Hx Dementia: No Hx Asthma: No Hx of COPD: No Hx Cardiac Disorders: No Hx Congestive Heart Failure: No Hx Pacemaker: No Hx Hypertension: No Hx Thyroid Disease: Yes Hx Diabetes: No Hx Gastroesophageal Reflux: No Hx Renal Disease: No Hx Cancer: No Hx of HIV: No Hx Hepatitis C: No Hx MRSA: No Surgical History: cholecystectomy - Vaccination History Hx Tetanus, Diphtheria Vaccination: Yes Hx Influenza Vaccination: Yes Hx Pneumococcal Vaccination: Yes - Social History Hx Tobacco Use: Yes - smoked cigars at one time Hx Chewing Tobacco Use: No Hx Alcohol Use: No Hx Substance Use: No Hx Substance Use Treatment: No Hx Depression: No Hx Physical Abuse: No Hx Emotional Abuse: No Hx Suspected Abuse: No - Female History Patient : No Family Medical History - Family History Father Family History: Unknown Physical Exam - Physical Exam General Appearance: Alert Eye Exam: bilateral normal Ears, Nose, Throat: normal ENT inspection Neck: non-tender, full range of motion, supple Respiratory: lungs clear, normal breath sounds Cardiovascular/Chest: normal peripheral pulses, regular rate, rhythm, no edema Gastrointestinal/Abdominal: normal bowel sounds, non tender, soft Back Exam: normal inspection, no CVA tenderness Extremity: normal range of motion, non-tender, normal inspection Neurologic: environment coordinator II-XII nml as tested, no motor/sensory deficits, alert, normal m ood/affect, oriented x 3 Skin Exam: normal color Lymphatic: no adenopathy Progress - Progress Progress: 01/29/19 18:42 Laboratory Tests 01/29/19 01/29/19 01/29/19 17:10 17:10 17:45 WBC 7.4 RBC 4.09 L Hgb 12.9 L Hct 37.6 L MCV 91.9 MCH 31.6 H MCHC 34.4 RDW 15.4 H Plt Count 204 MPV 7.9 Absolute Neuts (auto) 5.20 Absolute Lymphs (auto) 1.20 Absolute Monos (auto) 0.80 Absolute Eos (auto) 0.20 Absolute Basos (auto) 0.10 Neutrophils % 70.8 Lymphocytes % 15.7 L Monocytes % 10.4 H Eosinophils % 2.3 Basophils % 0.8 Sodium 138 Potassium 4.4 Chloride 104 Carbon Dioxide 24 Anion Gap 14.4 BUN 31 H Creatinine 1.42 H BUN/Creatinine Ratio 21.8 H Random Glucose 95 Serum Osmolality 282.0 Calcium 9.5 Total Bilirubin 0.9 AST 13 ALT < 8 L Alkaline Phosphatase 83 Serum Total Protein 7.1 Albumin 4.0 Globulin 3.1 Albumin/Globulin Ratio 1.3 Urine Color Yellow Urine Appearance Clear Urine pH 6.0 Ur Specific [place] 1.015 Urine Protein Negative Urine Glucose (UA) Negative Urine Ketones Negative Urine Blood Negative Urine Nitrite Negative Urine Bilirubin Negative Urine Urobilinogen 0.2 Ur Leukocyte Esterase Negative Urine RBC 0 Urine WBC 0 Ur Epithelial Cells [address] head negative. Cr 1.42. Patient was given one liter IV NS. UA negative. Patient was discharged with instructions to increase oral fluids and have renal function rechecked by his pcp this week. Care instructions given. E.R. warnings given. Questions were elicited and answered. Patient's daughter voiced understanding and agreement with the plan. Departure - Departure Clinical Impression: Fall at home, Dehydration Disposition: Discharge to Home or Self Care Condition: Good Departure Forms: ED Discharge - Pt. Copy, Patient Portal Self Enrollment Instructions: Dehydration, Adult (DC) Diet: resume usual diet Activity: increase activity as tolerated Referrals: TENISHA MCCABE MD [Primary Care Provider] - 1-2 Weeks Home Medications: Ambulatory Orders Tamsulosin [Flomax] 0.4 mg PO DAILY 04/14/15 rOPINIRole HCL [Requip] 1 mg PO BID #0 tab 04/16/15 Levothyroxine Sodium 50 mcg PO DAILY 08/30/18 Midodrine HCl 10 mg PO QID 08/30/18 Tramadol HCl 50 mg PO Q6H PRN 08/30/18 Carbidopa/Levodopa 25/100 [Sinemet 25/100] 1 ea PO QID 10/21/18 Nabumetone 1,000 mg PO BEDTIME 10/21/18 Pimavanserin Tartrate [Nuplazid] 34 mg PO DAILY 10/21/18 Calcium Citrate [Calcitrate] 1,900 mg PO BID 01/29/19 Vitamin D DAILY 01/29/19 Additional Instructions: See your regular doctor in the next two days to retest your kidney function. Increase oral fluids. Return to the E.R. for mental status changes.
[2019-01-29 18:59] VITALS: BP 165/93; TEMP 97.1; O2SAT 95
== END 2019-01-29 19:05 | disposition home or self-care (01) ==
LOC: ER 15:33
DX: Z04.3 Encounter for examination and observation following other accident (principal); E86.0 Dehydration; G31.83 Neurocognitive disorder with Lewy bodies; F02.80 Dementia in other diseases classified elsewhere, unspecified severity, without behavioral disturbance, psychotic disturbance, mood disturbance, and anxiety; G20 Parkinson's disease; E07.9 Disorder of thyroid, unspecified; W06.XXXA Fall from bed, initial encounter; Z87.891 Personal history of nicotine dependence; Z79.899 Other long term (current) drug therapy; Z88.0 Allergy status to penicillin; Y92.9 Unspecified place or not applicable
CPT/HCPCS: 36415; 70450; 72100; 80053; 81001; 85025; J7030

== ENCOUNTER → 2019-05-24 | Outpatient (CLI) | payer MEDICARE, OTHER | LOC: BFHH 13:47 | PROVIDERS: ATTEND Family Medicine | DX: G20 Parkinson's disease (principal); G30.9 Alzheimer's disease, unspecified; F02.80 Dementia in other diseases classified elsewhere, unspecified severity, without behavioral disturbance, psychotic disturbance, mood disturbance, and anxiety ==

== ENCOUNTER → 2019-05-26 | Outpatient (CLI) | payer MEDICARE, OTHER | LOC: BFHH 11:22 | PROVIDERS: ATTEND Family Medicine | DX: N39.0 Urinary tract infection, site not specified (principal); G20 Parkinson's disease; G30.9 Alzheimer's disease, unspecified; F02.80 Dementia in other diseases classified elsewhere, unspecified severity, without behavioral disturbance, psychotic disturbance, mood disturbance, and anxiety ==

== ENCOUNTER 2019-11-24 19:05 | Emergency (ER) | payer MEDICARE, OTHER ==
--- NOTE | 2019-11-24 19:55 | CT ---
EXAM DESCRIPTION: Head CLINICAL HISTORY: 79 years Male fall with confusion COMPARISON: Prior study dated October 21, 2018. TECHNIQUE: Images were obtained in axial, sagittal, and coronal planes. This exam was performed according to our departmental dose-optimization program which includes use of Automated Exposure Control, adjustment of the mA and/or kV according to patient size and/or use of iterative reconstruction technique. FINDINGS: Ventricular system is enlarged. Moderate prominence of the cortical sulci. No abnormal areas of increased attenuation seen. No extra-axial fluid collections noted. No evidence for skull fracture. Mucosal thickening right mastoid air cells Correlated with the prior study. Unremarkable paranasal sinuses. IMPRESSION: No acute intracranial abnormality. No evidence for hemorrhage, mass lesion, or large acute infarction. Mucosal thickening right mastoid air cells are new when correlated with the prior study. Clinical correlation would be needed to further determine inflammatory change versus posttraumatic change. Electronically signed by: Sugey Franz MD 11/24/2019 7:53 PM CDT
--- NOTE | 2019-11-24 20:03 | CT ---
EXAM DESCRIPTION: Cervical Spine CLINICAL HISTORY: 79 years Male, fall with confusion COMPARISON: CT cervical spine January 17, 2018 TECHNIQUE: Multiple, helical axial tomographic images were obtained of the cervical spine without intravenous contrast. Coronal and sagittal reformatted images were obtained. This exam was performed according to our departmental dose-optimization program, which includes automated exposure control, adjustment of the mA and/or kV according to patient size and/or use of iterative reconstruction technique. FINDINGS: No evidence for an acute fracture of the cervical spine. There are 3 mm anterior subluxation of C4 relative to C5 which is likely degenerative related. Multilevel facet arthropathy demonstrated. There is multilevel mild disc space narrowing. Central canal appears grossly patent. Dilatation of the ascending thoracic aorta noted measuring up to 4.9 cm in diameter. Opacification of right mastoid air cells and middle ear space is demonstrated. IMPRESSION: 1. No evidence for an acute fracture of the cervical spine. 2. Ascending thoracic aortic dilatation. 3. Nonspecific opacification of right mastoid air cells and middle ear space, correlate clinically for underlying infection. Electronically signed by: Juan Cervantes MD 11/24/2019 8:02 PM CDT
[2019-11-24] MEDS ORDERED: CHLORHEXIDINE GLUCONATE 4 % 15 ML UD TOP ONE (20:15)
[2019-11-24] MEDS ORDERED: NEOMYCIN-BACITRACIN-POLYMYXIN 0.9 GM UD TOP ONE (20:58)
[2019-11-24 21:05] VITALS: O2SAT 97
--- NOTE | 2019-11-24 21:16 | ED.PDOC ---
History of Present Illness - General Chief Complaint: Laceration Stated Complaint: fall causing laceration to right head Time Seen by Provider: 11/24/19 21:14 Source: patient, RN notes reviewed, Vital Signs reviewed, family - Sister Exam Limitations: no limitations - History of Present Illness Initial Comments: Patient is a 79-year-old white male who was at home and slipped and fell and hit his head. Patient sustained a laceration. There was no loss of consciousness. Patient complains of a headache that is throbbing in nature. Mild in intensity. Nonradiating. Nothing makes it better or worse. Timing/Duration: 1-3 hours Severity: mild Improving Factors: nothing Worsening Factors: nothing Associated Symptoms: headaches Allergies/Adverse Reactions: Allergies Penicillins Allergy (Verified 11/24/19 19:34) Home Medications: Ambulatory Orders Tamsulosin [Flomax] 0.4 mg PO DAILY 04/14/15 rOPINIRole HCL [Requip] 1 mg PO BID #0 tab 04/16/15 Levothyroxine Sodium 50 mcg PO DAILY 08/30/18 Midodrine HCl 10 mg PO QID 08/30/18 Tramadol HCl 50 mg PO Q6H PRN 08/30/18 Carbidopa/Levodopa 25/100 [Sinemet 25/100] 1 ea PO QID 10/21/18 Nabumetone 1,000 mg PO BEDTIME 10/21/18 Pimavanserin Tartrate [Nuplazid] 34 mg PO DAILY 10/21/18 Calcium Citrate [Calcitrate] 1,900 mg PO BID 01/29/19 Vitamin D DAILY 01/29/19 Review of Systems - Review of Systems Constitutional: States: no symptoms reported, see HPI EENTM: States: no symptoms reported. Denies: eye pain, blurred vision, double vision Respiratory: States: no symptoms reported. Denies: cough, short of breath Cardiology: States: no symptoms reported. Denies: chest pain, palpitations, sy ncope Gastrointestinal/Abdominal: States: no symptoms reported. Denies: abdominal pain, constipation, diarrhea, nausea, vomiting Genitourinary: States: no symptoms reported Musculoskeletal: States: see HPI. Denies: back pain, neck pain Skin: States: see HPI, other - Laceration to head Neurological: States: see HPI, headache, tremors - Secondary to Parkinson's. Denies: weakness Endocrine: States: no symptoms reported Hematologic/Lymphatic: States: no symptoms reported All other Systems: Reviewed and Negative Past Medical History (General) - Patient Medical History Hx Seizures: No Hx Stroke: No Hx Dementia: No Hx Asthma: No Hx of COPD: No Hx Cardiac Disorders: No Hx Congestive Heart Failure: No Hx Pacemaker: No Hx Hypertension: No Hx Thyroid Disease: Yes Hx Diabetes: No Hx Gastroesophageal Reflux: No Hx Renal Disease: No Hx Cancer: No Hx of HIV: No Hx Hepatitis C: No Hx MRSA: No Surgical History: cholecystectomy - Vaccination History Hx Tetanus, Diphtheria Vaccination: No Hx Influenza Vaccination: Yes Hx Pneumococcal Vaccination: Yes - Social History Hx Tobacco Use: Yes - smoked cigars at one time Hx Chewing Tobacco Use: No Hx Alcohol Use: Yes - occ. Hx Substance Use: No Hx Substance Use Treatment: No Hx Depression: No Hx Physical Abuse: No Hx Emotional Abuse: No Hx Suspected Abuse: No - Female History Patient : No Family Medical History - Family History Father Family History: Unknown Physical Exam - Physical Exam General Appearance: Alert, Comfortable, Well Developed, Well Groomed, Well Hydrated, Well Nourished Eye Exam: bilateral normal Ears, Nose, Throat: hearing grossly normal, normal ENT inspection, normal pharynx Neck: non-tender, normal inspection, limited range of motion - Secondary to DJD. Respiratory: chest non-tender, lungs clear, normal breath sounds Cardiovascular/Chest: normal peripheral pulses, regular rate, rhythm, no edema, no gallop, no murmur Peripheral Pulses: radial,right: 2+, radial,left: 2+ Gastrointestinal/Abdominal: normal bowel sounds, non tender, soft Back Exam: normal inspection, no CVA tenderness, no vertebral tenderness Extremity: normal range of motion, non-tender, normal inspection Neurologic: cut off worker II-XII nml as tested, no motor/sensory deficits, alert, normal mood/affect, oriented x 3 Skin Exam: normal color, other - 2 cm laceration to right occiput. Lymphatic: no adenopathy Progress - Progress Progress: Differential diagnosis: Skull fracture, head contusion, scalp laceration, intraparenchymal bleed among others. 11/24/19 21:19 CT scan showed no acute disease. Did discuss with the sister his dilated thoracic aorta. Sister states that they are aware of this and have been following with his cardiovascular surgeon. Patient tolerated the staple repair of his scalp wound. Plan on discharge home with follow-up with PCP in 10 days for staple removal. I discussed this plan of care with the patient and his sister and they voiced understanding and agreement with the plan of care. Patient was given a Tdap for tetanus prophylaxis. Go Francisco M.D. #[id number] - Results/Orders Results/Orders: EXAM DESCRIPTION: Cervical Spine CLINICAL HISTORY: 79 years Male, fall with confusion COMPARISON: CT cervical spine January 17, 2018 TECHNIQUE: Multiple, helical axial tomographic images were obtained of the cervical spine without intravenous contrast. Coronal and sagittal reformatted images were obtained. This exam was performed according to our departmental dose-optimization program, which includes automated exposure control, adjustment of the mA and/or kV according to patient size and/or use of iterative reconstruction technique. FINDINGS: No evidence for an acute fracture of the cervical spine. There are 3 mm anterior subluxation of C4 relative to C5 which is likely degenerative related. Multilevel facet arthropathy demonstrated. There is multilevel mild disc space narrowing. Central canal appears grossly patent. Dilatation of the ascending thoracic aorta noted measuring up to 4.9 cm in diameter. O pacification of right mastoid air cells and middle ear space is demonstrated. IMPRESSION: 1. No evidence for an acute fracture of the cervical spine. 2. Ascending thoracic aortic dilatation. 3. Nonspecific opacification of right mastoid air cells and middle ear space, correlate clinically for underlying infection. Electronically signed by: Juan Cervantes MD 11/24/2019 8:02 PM CDT EXAM DESCRIPTION: Head CLINICAL HISTORY: 79 years Male fall with confusion COMPARISON: Prior study dated October 21, 2018. TECHNIQUE: Images were obtained in axial, sagittal, and coronal planes. This exam was performed according to our departmental dose-optimization program which includes use of Automated Exposure Control, adjustment of the mA and/or kV according to patient size and/or use of iterative reconstruction technique. FINDINGS: Ventricular system is enlarged. Moderate prominence of the cortical sulci. No abnormal areas of increased attenuation seen. No extra-axial fluid collections noted. No evidence for skull fracture. Mucosal thickening right mastoid air cells Correlated with the prior study. Unremarkable paranasal sinuses. IMPRESSION: No acute intracranial abnormality. No evidence for hemorrhage, mass lesion, or large acute infarction. Mucosal thickening right mastoid air cells are new when correlated with the prior study. Clinical correlation would be needed to further determine inflammatory change versus posttraumatic change. Electronically signed by: Sugey Franz MD 11/24/2019 7:53 PM CDT - EKG/XRAY/CT CT Ordered: Yes Procedures - Laceration/Wound Repair Right Posterior Head Wound Length (cm): 2 Wound's Depth, Shape: superficial, linear Wound Explored: clean Irrigated w/ Saline (cc's): 100 Betadine Prep?: No Volume Anesthetic (cc's): 0 - No lidocaine was utilized for this repair at the request of the patient's sister. Wound Debrided: No wound debridement. Wound Repaired With: edith Number of Sutures: 3 Layer Closure?: No Sterile Dressing Applied?: Yes Splint Applied?: No Sling Applied?: No Progress: Patient tolerated the procedure well. There were no complications. Estimated blood loss less than 2 mL's. Departure - Departure Clinical Impression: Fall Qualifiers: Encounter type: initial encounter Qualified Code(s): W19.XXXA - Unspecified fall, initial encounter Occipital scalp laceration Qualifiers: Encounter type: initial encounter Qualified Code(s): S01.01XA - Laceration without foreign body of scalp, initial encounter Time of Disposition: 21:22 Disposition: Discharge to Home or Self Care Condition: Good Departure Forms: ED Discharge - Pt. Copy, Patient Portal Self Enrollment Instructions: DI for Laceration Repair, How to Care for a Laceration After Repair Diet: resume usual diet Activity: increase activity as tolerated Referrals: TENISHA MCCABE MD [Primary Care Provider] - 12/04/19 (For staple removal.) Home Medications: Ambulatory Orders Tamsulosin [Flomax] 0.4 mg PO DAILY 04/14/15 rOPINIRole HCL [Requip] 1 mg PO BID #0 tab 04/16/15 Levothyroxine Sodium 50 mcg PO DAILY 08/30/18 Midodrine HCl 10 mg PO QID 08/30/18 Tramadol HCl 50 mg PO Q6H PRN 08/30/18 Carbidopa/Levodopa 25/100 [Sinemet 25/100] 1 ea PO QID 10/21/18 Nabumetone 1,000 mg PO BEDTIME 10/21/18 Pimavanserin Tartrate [Nuplazid] 34 mg PO DAILY 10/21/18 Calcium Citrate [Calcitrate] 1,900 mg PO BID 01/29/19 Vitamin D DAILY 01/29/19
[2019-11-24] MEDS ORDERED: TETANUS,DIPHTHERIA,PERTUSSIS 1 EA SYG IM ONE (21:24)
[2019-11-24 21:31] VITALS: BP 188/114; TEMP 98
== END 2019-11-24 21:42 | disposition home or self-care (01) ==
LOC: ER 19:05
DX: S01.01XA Laceration without foreign body of scalp, initial encounter (principal); R51 Headache; Z87.891 Personal history of nicotine dependence; W01.0XXA Fall on same level from slipping, tripping and stumbling without subsequent striking against object, initial encounter; Y92.009 Unspecified place in unspecified non-institutional (private) residence as the place of occurrence of the external cause

== ENCOUNTER 2020-03-30 14:31 | Emergency (ER) | payer MEDICARE, OTHER ==
--- NOTE | 2020-03-30 14:52 | ED.PDOC ---
History of Present Illness - General Chief Complaint: Trauma Stated Complaint: fall Time Seen by Provider: 03/30/20 14:45 Source: patient, RN notes reviewed, Vital Signs reviewed, EMS notes reviewed, family - History of Present Illness Initial Comments: Patient is a 79-year-old male with past medical history of hypertension and Parkinson's dementia who presents to ED for confusion and recent fall. I have discussed patient with his primary care doctor, Dr. Stewart, states patient was diagnosed with COVID-19 about a week ago and has had mild symptoms cough. For the past 24 hours he has been confused and altered at home. He has also had 2 falls in the past 72 hours. Patient is unable to give any further history. Per EMS, initial O2 sat was 91%. Allergies/Adverse Reactions: Allergies Penicillins Allergy (Verified 11/24/19 19:34) Home Medications: Ambulatory Orders Tamsulosin [Flomax] 0.4 mg PO DAILY 04/14/15 rOPINIRole HCL [Requip] 1 mg PO BID #0 tab 04/16/15 Levothyroxine Sodium 50 mcg PO DAILY 08/30/18 Midodrine HCl 10 mg PO QID 08/30/18 Tramadol HCl 50 mg PO Q6H PRN 08/30/18 Carbidopa/Levodopa 25/100 [Sinemet 25/100] 1 ea PO QID 10/21/18 Nabumetone 1,000 mg PO BEDTIME 10/21/18 Pimavanserin Tartrate [Nuplazid] 34 mg PO DAILY 10/21/18 Calcium Citrate [Calcitrate] 1,900 mg PO BID 01/29/19 Vitamin D DAILY 01/29/19 Review of Systems - Review of Systems Unable to Obtain Due To: dementia Past Medical History (General) - Patient Medical History Hx Seizures: No Hx Stroke: No Hx Dementia: No Hx Asthma: No Hx of COPD: No Hx Cardiac Disorders: No Hx Congestive Heart Failure: No Hx Pacemaker: No Hx Hypertension: No Hx Thyroid Disease: Yes Hx Diabetes: No Hx Gastroesophageal Reflux: No Hx Renal Disease: No Hx Cancer: No Hx of HIV: No Hx Hepatitis C: No Hx MRSA: No - Vaccination History Hx Tetanus, Diphtheria Vaccination: No Hx Influenza Vaccination: Yes Hx Pneumococcal Vaccination: Yes - Social History Hx Tobacco Use: Yes - smoked cigars at one time Hx Chewing Tobacco Use: No Hx Alcohol Use: Yes - occ. Hx Substance Use: No Hx Substance Use Treatment: No Hx Depression: No Hx Physical Abuse: No Hx Emotional Abuse: No Hx Suspected Abuse: No - Female History Patient : No Family Medical History - Family History Father Family History: Unknown Physical Exam - Physical Exam General Appearance: Agitated, Alert, Other - Head is atraumatic. Able to answer simple questions. Eye Exam: bilateral normal - PERRL Ears, Nose, Throat: other - Moist MM Neck: non-tender, full range of motion, supple Respiratory: chest non-tender, lungs clear, normal breath sounds, no respiratory distress Cardiovascular/Chest: regular rate, rhythm Gastrointestinal/Abdominal: non tender, soft, no pulsatile mass Back Exam: no vertebral tenderness Extremity: other - FROM in all 4 extremities. No deformity, abrasiona, lacerations or ecchymosis noted. Neurologic: other - Oriented to person only. Can follow simple commands Skin Exam: normal color, warm/dry Progress - Progress Progress: 03/30/20 15:43 Pt combative with staff and pulling at IV and monitor wires. Given Ativan earlier without improvement. Will treat with Haldol and monitor. 03/30/20 16:11 D/W Dia Garcia hospitalist. Will d/w [facility] and call back. 03/30/20 16:54 I have d/w Dr. Stewart and Dia. Pt does not meet criteria for observation. Confusion likely due to baseline dementia and COVID infection. Dr. Stewart will follow up in clinic for recheck and continued evaluation. Pt somnolent after Haldol and Ativan. Will observe in ED until more alert. 03/30/20 17:56 Pt more alert. VS have been stable. i have discussed lab and imaging findings. Will plan to DC home with community resources in care of family. - Results/Orders Results/Orders: EKG- NSR, rate 63, nml intervals, sinus arrythmia, No ST abnormality CHEST XRAY EXAM DESCRIPTION: Chest,1 View CLINICAL HISTORY: trauma COMPARISON: 21 Oct 2018 TECHNIQUE: AP portable chest FINDINGS: Calcified granulomas are observed in the left hilum. The lungs are free of acute infiltrate. Mild chronic interstitial lung disease is noted. No pleural fluid is seen. IMPRESSION: I see no acute cardia pulmonary pathology or significant interval change. PELVIC XRAY EXAM DESCRIPTION: Pelvis CLINICAL HISTORY: trauma COMPARISON: CT the abdomen pelvis dated 10 January 2017 TECHNIQUE: AP supine pelvis FINDINGS: Degenerative changes are observed at the L5-S1 level of the lumbar spine. Minimal acetabular osteophyte formation is observed. No fracture is detected. The pelvis is intact. No pelvic fracturing is detected. Calcific atherosclerotic changes observed in the femoral vessels. Phlebolith type calcifications are observed in the pelvis. IMPRESSION: Degenerative changes are observed. No fracturing is detected. CT HEAD FINDINGS: No intracranial hemorrhage is observed. No mass lesions or mass effect are observed. The paranasal sinuses and orbits are normal in appearance. The exam reveals mucosal sinus disease in the right mastoid sinus air cell complex. The left mastoid sinus air cell complex is patent. The orbits as imaged are normal. No evidence of skull fracturing is detected. The ventricles and cisternal spaces are within range of normal. Mild periventricular white matter low-attenuation is observed consistent with ischemic demyelination. IMPRESSION: 1. The exam is mildly degraded by patient motion. 2. No acute parenchymal pathology is detected. Senescent changes are observed. 3. Mucosal sinus disease is observed in the right mastoid sinus air cell complex. CT C SPINE FINDINGS: There is good alignment of the cervical spine. Mild diffuse degenerative changes are observed with minimal anterior subluxation of C4 on C5. No fracture is detected. The disc spaces remain unchanged from the previous exam. Mild anterior osteophyte formation is noted. The lung apices are clear. No soft tissue abnormality is detected. Diffuse facet joint arthritis is observed. No significant compromise of the subarachnoid space is observed. Mucosal sinus disease is observed in both mastoid sinuses more pronounced on the patient's right. IMPRESSION: 1. Cervical spondylosis is observed without evidence of a fracture. 2. 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 03/30/20 14:48 IV:Start .ONCE 03/30/20 15:00 EKG .ONCE Laboratory Results - last 24 hr 03/30/20 03/30/20 03/30/20 15:04 15:10 15:10 WBC 3.8 L RBC 3.90 L Hgb 12.7 L Hct 36.9 L MCV 94.5 H MCH 32.4 H MCHC 34.3 RDW 13.7 Plt Count 151 MPV 8.1 Absolute Neuts (auto) 2.50 Absolute Lymphs (auto) 0.70 L Absolute Monos (auto) 0.50 Absolute Eos (auto) 0.00 Absolute Basos (auto) 0.00 Neutrophils % 66.7 Lymphocytes % 18.0 L Monocytes % 13.8 H Eosinophils % 1.0 Basophils % 0.5 Sodium 136 Potassium 4.4 Chloride 100 L Carbon Dioxide 24 Anion Gap 16.4 BUN 17 Creatinine 1.21 BUN/Creatinine Ratio 14.0 Random Glucose 99 Serum Osmolality 273.5 L Calcium 8.6 Total Bilirubin 0.7 AST 18 ALT 10 Alkaline Phosphatase 83 Serum Total Protein 6.6 Albumin 3.6 Globulin 3.0 Albumin/Globulin Ratio 1.2 Urine Color Yellow Urine Appearance Clear Urine pH 7.0 Ur Specific [place] 1.015 Urine Protein Negative Urine Glucose (UA) Negative Urine Ketones Negative Urine Blood Negative Urine Nitrite Negative Urine Bilirubin Negative Urine Urobilinogen 0.2 Ur Leukocyte Esterase Negative Urine RBC 0-1 Urine WBC 1-3 Ur Epithelial Cells 0 Amorphous Sediment Trace Urine Bacteria 0 Urine Mucus Trace Departure - Departure Clinical Impression: Frequent falls, Fall from ground level, COVID-19 Leukopenia Qualifiers: Leukopenia type: unspecified Qualified Code(s): D72.819 - Decreased white blood cell count, unspecified Dementia Qualifiers: Dementia type: Parkinson's disease Dementia behavioral disturbance: with behavioral disturbance Qualified Code(s): G20 - Parkinson's disease Time of Disposition: 17:57 Disposition: Discharge to Home or Self Care Condition: Fair Departure Forms: ED Discharge - Pt. Copy, Patient Portal Self Enrollment Instructions: DI for Trauma, Parkinson Disease (DC) Diet: resume usual diet Activity: increase activity as tolerated Referrals: TENISHA STEWART MD [Primary Care Provider] - 1-2 Days Home Medications: Ambulatory Orders Tamsulosin [Flomax] 0.4 mg PO DAILY 04/14/15 rOPINIRole HCL [Requip] 1 mg PO BID #0 tab 04/16/15 Levothyroxine Sodium 50 mcg PO DAILY 08/30/18 Midodrine HCl 10 mg PO QID 08/30/18 Tramadol HCl 50 mg PO Q6H PRN 08/30/18 Carbidopa/Levodopa 25/100 [Sinemet 25/100] 1 ea PO QID 10/21/18 Nabumetone 1,000 mg PO BEDTIME 10/21/18 Pimavanserin Tartrate [Nuplazid] 34 mg PO DAILY 10/21/18 Calcium Citrate [Calcitrate] 1,900 mg PO BID 01/29/19 Vitamin D DAILY 01/29/19
[2020-03-30] MEDS ORDERED: HALOPERIDOL LACTATE INJ 5 MG/ML VIAL IM ONE (15:42)
--- NOTE | 2020-03-30 15:55 | RAD ---
EXAM DESCRIPTION: Pelvis CLINICAL HISTORY: trauma COMPARISON: CT the abdomen pelvis dated 10 January 2017 TECHNIQUE: AP supine pelvis FINDINGS: Degenerative changes are observed at the L5-S1 level of the lumbar spine. Minimal acetabular osteophyte formation is observed. No fracture is detected. The pelvis is intact. No pelvic fracturing is detected. Calcific atherosclerotic changes observed in the femoral vessels. Phlebolith type calcifications are observed in the pelvis. IMPRESSION: Degenerative changes are observed. No fracturing is detected. Electronically signed by: Ever Liriano MD 03/30/2020 3:53 PM CDT
--- NOTE | 2020-03-30 15:58 | CT ---
EXAM DESCRIPTION: Head CLINICAL HISTORY: trauma COMPARISON: 24 November 2019 TECHNIQUE: Non contrast cranial CT.This exam was performed according to our departmental dose-optimization program, which includes automated exposure control, adjustment of the mA and/or kV according to patient size and/or use of iterative reconstruction technique. The exam is mildly degraded by patient motion. FINDINGS: No intracranial hemorrhage is observed. No mass lesions or mass effect are observed. The paranasal sinuses and orbits are normal in appearance. The exam reveals mucosal sinus disease in the right mastoid sinus air cell complex. The left mastoid sinus air cell complex is patent. The orbits as imaged are normal. No evidence of skull fracturing is detected. The ventricles and cisternal spaces are within range of normal. Mild periventricular white matter low-attenuation is observed consistent with ischemic demyelination. IMPRESSION: 1. The exam is mildly degraded by patient motion. 2. No acute parenchymal pathology is detected. Senescent changes are observed. 3. Mucosal sinus disease is observed in the right mastoid sinus air cell complex. Electronically signed by: Ever Liriano MD 03/30/2020 3:56 PM CDT
--- NOTE | 2020-03-30 16:02 | RAD ---
EXAM DESCRIPTION: Chest,1 View CLINICAL HISTORY: trauma COMPARISON: 21 Oct 2018 TECHNIQUE: AP portable chest FINDINGS: Calcified granulomas are observed in the left hilum. The lungs are free of acute infiltrate. Mild chronic interstitial lung disease is noted. No pleural fluid is seen. IMPRESSION: I see no acute cardia pulmonary pathology or significant interval change. Electronically signed by: Ever Liriano MD 03/30/2020 4:00 PM CDT
--- NOTE | 2020-03-30 16:06 | CT ---
EXAM DESCRIPTION: Cervical Spine CLINICAL HISTORY: trauma COMPARISON: None Available. TECHNIQUE: Cervical CT is performed with thin-section axial imaging. MPRs are created and reviewed as well.This exam was performed according to our departmental dose-optimization program, which includes automated exposure control, adjustment of the mA and/or kV according to patient size and/or use of iterative reconstruction technique. FINDINGS: There is good alignment of the cervical spine. Mild diffuse degenerative changes are observed with minimal anterior subluxation of C4 on C5. No fracture is detected. The disc spaces remain unchanged from the previous exam. Mild anterior osteophyte formation is noted. The lung apices are clear. No soft tissue abnormality is detected. Diffuse facet joint arthritis is observed. No significant compromise of the subarachnoid space is observed. Mucosal sinus disease is observed in both mastoid sinuses more pronounced on the patient's right. IMPRESSION: 1. Cervical spondylosis is observed without evidence of a fracture. 2. 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 Electronically signed by: Ever Liriano MD 03/30/2020 4:05 PM CDT
[2020-03-30 23:01] VITALS: BP 118/89; TEMP 97.2
[2020-03-30 23:10] VITALS: O2SAT 94
== END 2020-03-30 23:11 | disposition home or self-care (01) ==
LOC: ER 14:31
DX: G20 Parkinson's disease (principal); F02.81 Dementia in other diseases classified elsewhere, unspecified severity, with behavioral disturbance; D72.819 Decreased white blood cell count, unspecified; U07.1 COVID-19; R29.6 Repeated falls; M47.812 Spondylosis without myelopathy or radiculopathy, cervical region; I10 Essential (primary) hypertension; E07.9 Disorder of thyroid, unspecified; W18.30XA Fall on same level, unspecified, initial encounter; Y92.9 Unspecified place or not applicable; Z88.0 Allergy status to penicillin; Z87.891 Personal history of nicotine dependence; Z79.899 Other long term (current) drug therapy
CPT/HCPCS: 36415; 70450; 71045; 72125; 72170; 80053; 81001; 85025; 93005; J1630; J2060